=== PATIENT | male | born 1950 | race Caucasian/White ===

== ENCOUNTER → 2017-01-21 | Outpatient (CLI) | payer OTHER ==
[~2017-01-21] MED LIST: ACET-1138 PO; ATEN-171 PO; ATOR-24 PO; CARB1SOL OPB; CARI350T28 PO; CETI10TA84 PO; CLB200 PO; CLOB-65 EXT; CMD5 PO; CYAN500T13 PO; GLC/500 PO; LOVENOX SQ; LVNIS40 SQ; PREG1CAP70 PO; RXC5 PO; SNK PO; WARF7.5T4 PO
[2017-01-21 13:25] LABS: ALT/SGPT 34 U/L (12-78); AST/SGOT 22 U/L (15-37); BLOOD UREA NITROGEN 20 mg/dl (7-18); BUN/CREATININE RATIO 16.8 (10-20); CALCIUM 8.4 mg/dl (8.5-10.1); CARBON DIOXIDE 29 mmol/L (21-32); CHLORIDE 106 mmol/L (98-107); GLUCOSE 127 mg/dl (70-99); POTASSIUM 3.5 mmol/L (3.5-5.1); SODIUM 143 mmol/L (136-145)
[2017-01-21 13:28] LABS: ALB/GLOB RATIO 1.4 (0.9-2); ALKALINE PHOSPHATASE 107 U/L (45-117)
[2017-01-21 13:44] LABS: ESTIMATED AVERAGE GLUCOSE 143 mg/dl; HA1C FLAG Normal (Normal)
== END | disposition home or self-care (01) ==
LOC: C.LABMFLN 14:37
PROVIDERS: ATTEND Physician Assistant
DX: E11.9 Type 2 diabetes mellitus without complications (principal)

== ENCOUNTER → 2017-05-23 | Outpatient (CLI) | payer OTHER ==
[2017-05-23 14:27] LABS: ALT/SGPT 29 U/L (12-78); BLOOD UREA NITROGEN 22 mg/dl (7-18); BUN/CREATININE RATIO 15.6 (10-20); CARBON DIOXIDE 27 mmol/L (21-32); CHLORIDE 105 mmol/L (98-107); GLUCOSE 165 mg/dl (70-99); POTASSIUM 3.9 mmol/L (3.5-5.1); SODIUM 141 mmol/L (136-145)
[2017-05-23 14:28] LABS: BASO % 0.7 %; BASO ABS # 0.05 K/uL (0-0.2); COMPLETE YES; EOS % 8.1 %; HEMATOCRIT 47.9 % (42-52); IG% 0.3 %; LYMPH % 20.3 %; LYMPH ABS # 1.51 K/uL (1.2-3.4); MEAN CELL VOLUME 85.1 fL (80-100); MEAN CORPUSCULAR HEMOGLOBIN 28.6 pg (25-34); MEAN CORPUSCULAR HGB CONC 33.6 g/dl (32-36); MEAN PLATELET VOLUME 10.9 fL (7.4-10.4); MONO % 11.7 %; NEUT % 58.9 %; PLATELET COUNT 193 K/uL (130-400); RED BLOOD COUNT 5.63 M/uL (4.7-6.1); WHITE BLOOD COUNT 7.44 K/uL (4.8-10.8)
[2017-05-23 14:37] LABS: ALB/GLOB RATIO 1.3 (0.9-2); ALKALINE PHOSPHATASE 110 U/L (45-117); AST/SGOT 22 U/L (15-37); RHEUMATOID FACTOR < 10.0 U/mL (0-15); THYROID STIMULATING HORMONE 0.767 uIu/ml (0.300-4.500)
[2017-05-23 16:47] LABS: LYME DISEASE AB IGG NEG (NEG); LYME DISEASE AB IGM NEG (NEG)
== END | disposition home or self-care (01) ==
LOC: C.LABMFLN 10:15
PROVIDERS: ATTEND Physician Assistant
DX: M25.50 Pain in unspecified joint (principal); I82.409 Acute embolism and thrombosis of unspecified deep veins of unspecified lower extremity

== ENCOUNTER → 2017-06-06 | Outpatient (CLI) | payer OTHER ==
--- NOTE | 2017-06-06 11:16 | DIAGNOSTIC IMAGING REPORT ---
RIGHT WRIST MIN 3 VIEWS ROUTINE, RIGHT HAND MIN 3 VIEWS ROUTINE HISTORY: 67 years-old Male ARTHRALGIA OF MULTIPLE JOINTS Right symptoms are chronic. COMPARISON: None available TECHNIQUE: 3 views of the right hand and 3 views of the right wrist FINDINGS: Wrist: Mild radiocarpal degenerative changes are present. Moderate degenerative changes involve the first carpometacarpal joint. Mild triscaphe degenerative changes are noted. There is no acute fracture or dislocation. Peripheral arterial calcifications are present. Hand: Degenerative changes about the wrist are noted as above. Interphalangeal joint space narrowing is seen throughout the digits, most pronounced in the DIP joints of the third through fifth digits with there is at least moderate disease. Mild ulnar subluxation of the distal phalanx is noted, chronic in nature. No erosive arthropathy. Negative for opaque foreign body. IMPRESSION: 1. No acute fracture or dislocation of the right hand or wrist. 2. Degenerative changes about the hand and wrist, most pronounced in the first carpal metacarpal joint and DIP joints. 3. Peripheral vascular disease. The above report was generated using voice recognition software. It may contain grammatical, syntax or spelling errors. Electronically signed by: Tristan Brewer M.D. 06/06/2017 11:15 AM Dictated Date/Time: 06/06/2017 11:11 AM
--- NOTE | 2017-06-06 11:23 | DIAGNOSTIC IMAGING REPORT ---
LEFT HAND MIN 3 VIEWS ROUTINE CLINICAL HISTORY: ARTHRALGIA OF MULTIPLE JOINTS COMPARISON: None FINDINGS: No fracture or suspicious lesion is identified. There is marked joint space narrowing with extensive osteophytosis within the PIP joints of the third, fourth and fifth digits. There is severe osteoarthritis of the left first carpometacarpal joint. No erosions are identified. IMPRESSION: Severe osteoarthritis within multiple articulations of the left hand most pronounced within the DIP joints of the third, fourth and fifth digits and the left first carpometacarpal joint. The appearance within several distal interphalangeal joints raises the possibility of erosive osteoarthritis. Electronically signed by: Kris Spears M.D. 06/06/2017 11:21 AM Dictated Date/Time: 06/06/2017 11:19 AM
--- NOTE | 2017-06-06 11:24 | DIAGNOSTIC IMAGING REPORT ---
LEFT WRIST MIN 3 VIEWS ROUTINE CLINICAL HISTORY: ARTHRALGIA OF MULTIPLE JOINTS COMPARISON: None FINDINGS: There is marked joint space narrowing with osteophytosis of the left first carpometacarpal joint. No fracture or suspicious lesion is present. There is a lucent lesion within the scaphoid which is benign. There is moderate vascular calcification. There is no acute fracture. No erosions are identified. IMPRESSION: 1. Severe osteoarthrosis of the left first carpometacarpal joint. 2. No radiographic evidence of an inflammatory arthropathy. Electronically signed by: Kris Spears M.D. 06/06/2017 11:22 AM Dictated Date/Time: 06/06/2017 11:22 AM
--- NOTE | 2017-06-06 11:25 | DIAGNOSTIC IMAGING REPORT ---
RIGHT KNEE 3 VIEWS CLINICAL HISTORY: Right knee pain. Arthralgias of multiple joints. COMPARISON: None FINDINGS: There is moderate lateral patellar tilt. No fracture or suspicious lesion is present. There is marked narrowing of the lateral patellofemoral joint space. There is moderate medial component joint space narrowing. There is extensive osteophytosis of the right knee. No fracture or joint effusion is identified. IMPRESSION: 1. No acute fracture. 2. Moderate to severe osteoarthritis of the right knee, most pronounced within the medial and patellofemoral compartments. Electronically signed by: Kris Spears M.D. 06/06/2017 11:24 AM Dictated Date/Time: 06/06/2017 11:23 AM
[2017-06-06 12:50] LABS: TOTAL IRON BINDING CAPACITY 287 mcg/dl (250-450)
[2017-06-08 20:41] LABS: PARVOVIRUS IgG INDEX 0.4 (<0.9); PARVOVIRUS IgM INDEX 0.1 (<0.9)
== END | disposition home or self-care (01) ==
LOC: C.LAB1850 10:27
PROVIDERS: ATTEND Internal Medicine Rheumatology
DX: I73.9 Peripheral vascular disease, unspecified (principal); M17.11 Unilateral primary osteoarthritis, right knee; M19.042 Primary osteoarthritis, left hand; M19.032 Primary osteoarthritis, left wrist

== ENCOUNTER → 2017-07-29 | Outpatient (CLI) | payer OTHER ==
[2017-07-29 13:18] LABS: BASO % 0.6 %; BASO ABS # 0.05 K/uL (0-0.2); COMPLETE YES; EOS % 7.7 %; IG% 0.3 %; LYMPH % 21.6 %; LYMPH ABS # 1.69 K/uL (1.2-3.4); MEAN CELL VOLUME 86.6 fL (80-100); MEAN CORPUSCULAR HEMOGLOBIN 28.4 pg (25-34); MEAN CORPUSCULAR HGB CONC 32.8 g/dl (32-36); MEAN PLATELET VOLUME 10.8 fL (7.4-10.4); MONO % 9.6 %; NEUT % 60.2 %; PLATELET COUNT 200 K/uL (130-400); RED BLOOD COUNT 5.43 M/uL (4.7-6.1); WHITE BLOOD COUNT 7.82 K/uL (4.8-10.8)
[2017-07-29 13:42] LABS: ALT/SGPT 29 U/L (12-78)
[2017-07-29 13:45] LABS: ALKALINE PHOSPHATASE 92 U/L (45-117); AST/SGOT 22 U/L (15-37)
== END | disposition home or self-care (01) ==
LOC: C.LABMFLN 09:21
PROVIDERS: ATTEND Internal Medicine Rheumatology
DX: Z51.81 Encounter for therapeutic drug level monitoring (principal); Z79.899 Other long term (current) drug therapy

== ENCOUNTER → 2017-10-04 | Outpatient (CLI) | payer OTHER ==
[2017-10-04 12:44] LABS: BASO % 0.7 %; BASO ABS # 0.07 K/uL (0-0.2); COMPLETE YES; EOS % 6.5 %; HEMATOCRIT 36.6 % (42-52); IG% 0.1 %; LYMPH % 17.3 %; LYMPH ABS # 1.65 K/uL (1.2-3.4); MEAN CELL VOLUME 80.3 fL (80-100); MEAN CORPUSCULAR HEMOGLOBIN 24.6 pg (25-34); MEAN CORPUSCULAR HGB CONC 30.6 g/dl (32-36); MEAN PLATELET VOLUME 10.1 fL (7.4-10.4); MONO % 10.6 %; NEUT % 64.8 %; PLATELET COUNT 225 K/uL (130-400); RED BLOOD COUNT 4.56 M/uL (4.7-6.1); WHITE BLOOD COUNT 9.55 K/uL (4.8-10.8)
== END | disposition home or self-care (01) ==
LOC: C.LABMFLN 10:45
PROVIDERS: ATTEND Urology
DX: K92.2 Gastrointestinal hemorrhage, unspecified (principal); D64.9 Anemia, unspecified; Z12.5 Encounter for screening for malignant neoplasm of prostate

== ENCOUNTER → 2017-10-16 | Outpatient (CLI) | payer OTHER | END | disposition home or self-care (01) | LOC: C.LABMFLN 10:15 | PROVIDERS: ATTEND Internal Medicine Hematology & Oncology | DX: I82.403 Acute embolism and thrombosis of unspecified deep veins of lower extremity, bilateral (principal) ==

== ENCOUNTER → 2017-11-26 | Outpatient (CLI) | payer OTHER ==
[2017-11-26 17:58] LABS: BASO % 0.8 %; BASO ABS # 0.08 K/uL (0-0.2); EOS % 7.2 %; EOS ABS # 0.69 K/uL (0-0.5); HEMATOCRIT 38.3 % (42-52); HEMOGLOBIN 11.7 g/dL (14.0-18.0); IG# 0.01 K/uL (0.00-0.02); LYMPH ABS # 1.74 K/uL (1.2-3.4); MEAN CELL VOLUME 74.1 fL (80-100); MEAN CORPUSCULAR HEMOGLOBIN 22.6 pg (25-34); MEAN CORPUSCULAR HGB CONC 30.5 g/dl (32-36); MEAN PLATELET VOLUME 10.4 fL (7.4-10.4); MONO % 10.1 %; MONO ABS # 0.97 K/uL (0.11-0.59); NEUT % 63.8 %; NEUT ABS # 6.15 K/uL (1.4-6.5); PLATELET COUNT 267 K/uL (130-400); RED CELL DISTRIBUTION WIDTH CV 15.6 % (11.5-14.5); RED CELL DISTRIBUTION WIDTH SD 42.3 fL (36.4-46.3); WHITE BLOOD COUNT 9.64 K/uL (4.8-10.8)
[2017-11-26 18:26] LABS: CREATININE RANDOM URINE 58.8 mg/dl
[2017-11-26 18:29] LABS: ALBUMIN 3.9 gm/dl (3.4-5.0); AST/SGOT 23 U/L (15-37); BLOOD UREA NITROGEN 26 mg/dl (7-18); CALCIUM 8.5 mg/dl (8.5-10.1); CARBON DIOXIDE 28 mmol/L (21-32); CREATININE 1.73 mg/dl (0.60-1.40); GLUCOSE 241 mg/dl (70-99); POTASSIUM 4.2 mmol/L (3.5-5.1); SODIUM 137 mmol/L (136-145)
[2017-11-26 18:40] LABS: ALKALINE PHOSPHATASE 113 U/L (45-117); ALT/SGPT 30 U/L (12-78); CHOLESTEROL 114 mg/dl (0-200); LDL CHOLESTEROL CALCULATED 26 mg/dl; TOTAL PROTEIN 7.1 gm/dl (6.4-8.2)
[2017-11-27 05:50] LABS: HEMOGLOBIN A1C 8.8 % (4.5-5.6)
== END | disposition home or self-care (01) ==
LOC: C.LABMFLN 14:16
PROVIDERS: ATTEND Physician Assistant
DX: E11.9 Type 2 diabetes mellitus without complications (principal); E78.5 Hyperlipidemia, unspecified; D64.9 Anemia, unspecified; I10 Essential (primary) hypertension

== ENCOUNTER 2018-02-19 07:54 | Inpatient (IN) | payer OTHER ==
[2018-01-21 14:16] VITALS: BMI 39.0
--- NOTE | 2018-01-21 14:48 | PAT Medication Instructions ---
Service Date Jan 21, 2018. Current Home Medication List Acetaminophen (Tylenol), 1,000 MG PO PRN Aspirin (Aspirin Ec), 81 MG PO QPM Atenolol/Chlorthalidone (Tenoretic 50 Mg/25 Mg), 1 TAB PO HS Atorvastatin (Lipitor), 40 MG PO HS Carboxymethylcellulose Sodium (Refresh), 1 DROP OPB PRN Carisoprodol (Soma), 350 MG PO BID PRN for Pain Cetirizine (Zyrtec), 10 MG PO HS Clobetasol Propionate (Clobetasol Propionate Cream 0.05%), 1 APPLN EXT BID PRN for RN Cyanocobalamin (Vitamin B12 500MCG), 500 MCG PO QPM Hydrocodone/Acetaminophen 5MG/325MG ([place] 5MG/325MG), 1 TABLET PO Q6H PRN for N Metformin Hcl (Glucophage), 1,000 MG PO BID Pregabalin (Lyrica), 150 MG PO QAM Pregabalin (Lyrica), 25 MG PO HS Medication Instructions For Your Scheduled Surgery - Hold the following medications 24 hours prior to surgery: Clobetasol Propionate (Clobetasol Propionate Cream 0.05%), 1 APPLN EXT BID PRN for RN - Hold the following medications the morning of surgery: Metformin Hcl (Glucophage), 1,000 MG PO BID Carisoprodol (Soma), 350 MG PO BID PRN for Pain - Take the following medications the morning of surgery with a sip of water: Acetaminophen (Tylenol), 1,000 MG PO PRN (okay to take up to 4 hours prior to surgery if needed) Hydrocodone/Acetaminophen 5MG/325MG ([place] 5MG/325MG), 1 TABLET PO Q6H PRN for N (okay to take up to 4 hours prior to surgery if needed) Pregabalin (Lyrica), 150 MG PO QAM Carboxymethylcellulose Sodium (Refresh), 1 DROP OPB PRN (if needed) - Take the following medications as scheduled the night before surgery: Pregabalin (Lyrica), 25 MG PO HS Metformin Hcl (Glucophage), 1,000 MG PO BID Hydrocodone/Acetaminophen 5MG/325MG ([place] 5MG/325MG), 1 TABLET PO Q6H PRN for N (if needed) Cyanocobalamin (Vitamin B12 500MCG), 500 MCG PO QPM Cetirizine (Zyrtec), 10 MG PO HS Carboxymethylcellulose Sodium (Refresh), 1 DROP OPB PRN (if needed) Atorvastatin (Lipitor), 40 MG PO HS Atenolol/Chlorthalidone (Tenoretic 50 Mg/25 Mg), 1 TAB PO HS Aspirin (Aspirin Ec), 81 MG PO QPM Acetaminophen (Tylenol), 1,000 MG PO PRN (if needed) Carisoprodol (Soma), 350 MG PO BID PRN for Pain (if needed) If you have any questions please call us at [phone] or [phone] or [phone]
[2018-01-21 15:52] LABS: BASO % 0.5 %; BASO ABS # 0.05 K/uL (0-0.2); EOS % 6.3 %; EOS ABS # 0.58 K/uL (0-0.5); HEMOGLOBIN 12.1 g/dL (14.0-18.0); IG# 0.01 K/uL (0.00-0.02); LYMPH % 17.2 %; LYMPH ABS # 1.59 K/uL (1.2-3.4); MEAN CELL VOLUME 73.6 fL (80-100); MEAN CORPUSCULAR HEMOGLOBIN 22.8 pg (25-34); MEAN PLATELET VOLUME 10.3 fL (7.4-10.4); MONO ABS # 0.92 K/uL (0.11-0.59); NEUT % 65.9 %; NEUT ABS # 6.09 K/uL (1.4-6.5); PLATELET COUNT 234 K/uL (130-400); RED CELL DISTRIBUTION WIDTH CV 19.1 % (11.5-14.5); RED CELL DISTRIBUTION WIDTH SD 51.4 fL (36.4-46.3); WHITE BLOOD COUNT 9.24 K/uL (4.8-10.8)
[2018-01-21 15:59] LABS: CALCIUM 9.1 mg/dl (8.5-10.1); CREATININE 1.16 mg/dl (0.60-1.40); POTASSIUM 4.4 mmol/L (3.5-5.1)
[2018-01-21 16:03] LABS: INR 1.1 (0.9-1.1); PTT PATIENT 28.5 SECONDS (21.0-31.0)
[2018-01-22 06:47] LABS: HEMOGLOBIN A1C 6.5 % (4.5-5.6)
--- NOTE | 2018-02-18 16:36 | HISTORY & PHYSICAL EXAMINATION ---
DATE OF ADMISSION: 02/19/2018 CHIEF COMPLAINT: Chronic right knee pain. HISTORY OF PRESENT ILLNESS: This is a 67-year-old male patient of Dr. Owen'goldie complaining of chronic right knee pain, longstanding, now progressively getting worse. The patient has failed conservative treatment including anti-inflammatories, intra-articular injections, and the use of the cane. The patient has been diagnosed with end-stage osteoarthritis per clinical and radiographic exams. The patient has increased pain with weightbearing activities and his pain does interfere with his activities of daily living. PAST MEDICAL HISTORY: Hypertension, hypercholesterolemia, snoring, no evidence of sleep apnea, diabetes mellitus, history of blood clots, osteoarthritis, spine problems, sciatica, obesity, BPH. SOCIAL HISTORY: Did smoke 3 packs per day for 10 years, quit in 1991. No alcohol. PAST SURGICAL HISTORY: Bilateral hips, bilateral shoulders, spine, bilateral hands, left knee. REVIEW OF SYSTEMS: The patient complains of chronic right knee pain and instability. Otherwise denies any shortness of breath, chest pain, nausea, vomiting or other joint complaints. FAMILY HISTORY: Noncontributory. MEDICATIONS: 1. Atenolol/chlorthalidone 50/25 one daily. 2. Carisoprodol 350 mg daily. 3. Aspirin 81 mg daily. 4. Clobetasol 0.05% ointment 2 times to affected area topically. 5. Atorvastatin 40 mg daily. 6. Cetirizine 10 mg daily. 7. [place] as needed. 8. Vitamin B12 500 mcg daily. 9. Levaquin as directed. 10. Lyrica 225 mg daily in the evening. 11. Metformin 500 mg 2 tablets b.i.d. ALLERGIES: INCLUDE ADHESIVES. PHYSICAL EXAMINATION: GENERAL: Well-developed, well-nourished 67-year-old male, in no acute distress. He is alert and oriented x3 and pleasant. HEENT: Normocephalic, atraumatic. Extraocular motions are intact. Pupils are equal and reactive to light. HEART: Regular rate and rhythm. No murmurs appreciated. LUNGS: Clear. ABDOMEN: Soft and nontender. Bowel sounds are present. EXTREMITIES: Right knee reveals a varus deformity. He has negative 10-115 degrees of range of motion. He has medial joint line tenderness with a mild effusion. He has crepitation with passive range of motion. He has 4/5 strength and neurologically and neurovascularly he is intact in his right lower extremity. DIAGNOSES: Right knee end-stage osteoarthritis, hypertension, hypercholesterolemia, snoring with no diagnoses of sleep apnea, diabetes mellitus, history of blood clots, osteoarthritis, spine problems, sciatica, obesity, and benign prostatic hypertrophy. PLAN: The patient was advised of the diagnosis. Indications, risks, benefits, postop course have all been reviewed. The patient wished to proceed with a right total knee arthroplasty. Necessary consent forms, preoperative testing, and clearances will be obtained.
[~2018-02-19] VITALS: Ht 170.2 cm; Wt 113.2 kg
[2018-02-19] VITALS (13 sets, daily range): BP systolic 104–158; BP diastolic 60–96; PULSE 50–61; TEMP 36.2–37.4; O2SAT 88–100; Ht 170.2 cm; Wt 113.2 kg
[~2018-02-19 07:54] MED LIST changes: -ACET-1138 PO; +ACET-1256 PO; +ACETAMINOPHEN 500 MG TAB PO SCH; +ASPI81TA28 PO; +BUPIVACAINE 0.25% 30 ML VIAL ONE; +BUPIVACAINE 0.5 % 5 MG/1 ML PF 10ML VIAL ONE; +CEFAZOLIN 2000MG IV PUSH 15 ML IV SCH; -CLB200 PO; +CLBCRM30 EXT; -CLOB-65 EXT; -CMD5 PO; +FAMOTIDINE 20 MG TAB PO SCH; +FENTANYL CITRATE INJ 50 MCG/1 ML 2 ML VIAL ONE; +GABAPENTIN 300 MG CAP PO SCH; +HYDR-5688 PO; +LACTATED RINGER'S 1000ML 1,000 ML IV SCH; -LOVENOX SQ; -LVNIS40 SQ; +METOCLOPRAMIDE HCL 10 MG TAB PO SCH; +MIDAZOLAM HCL 1 MG/ML 2ML VIAL ONE; +PREG1CAP36 PO; +ROPIVACAINE 5MG/ML 30 ML 150 MG, BUPIVACAINE 0.5% MPF INJ 30 ML, EpINEphrine HCL INJ 0.... INFIL SCH; -RXC5 PO; -SNK PO; -WARF7.5T4 PO
[2018-02-19] MEDS ORDERED: BACITRACIN 50000 UNIT VIAL ONE (08:30)
[2018-02-19] MEDS ORDERED: POVIDONE-IODINE OP SOLN 30 ML BTL ONE (08:30)
[2018-02-19] MEDS ORDERED: ORTHO JOINT ANESTHETIC ONE (08:30)
[2018-02-19] MEDS ORDERED: PRT/20 PO (09:06)
--- NOTE | 2018-02-19 10:16 | History & Physical Bridge Note ---
H&P Re-Evaluation Bridge Note: I have examined the patient, reviewed the History & Physical and in the interval since the performance of the History & Physical I have noted the following changes of clinical significance: No changes noted
[2018-02-19] MEDS ORDERED: MIDAZOLAM HCL 1 MG/ML 2ML VIAL ONE (11:41)
[2018-02-19] MEDS ORDERED: PROPOFOL IV EMULSION 10 MG/ML 20 ML VIAL IV ONE ×2 (11:51)
--- NOTE | 2018-02-19 12:24 | [facility] Post Operative Brief Note ---
Immediate Operative Summary Operative Date Feb 19, 2018. Pre-Operative Diagnosis Right knee end-stage osteoarthritis Post-Operative Diagnosis Right knee end-stage osteoarthritis. Procedure(s) Performed Right Total Knee Arthroplastylateral release ITB release Surgeon Dr. Erasto Owen Dye Can Operator Surgeon(s) Edmundo Baeza Estimated Blood Loss 5ml Findings Consistent with Post-Op Diagnosis Specimens A. Right knee bone and tissue Drains 2 hemovac Anesthesia Type MAC Spinal Regional Complication(s) none
[2018-02-19] MEDS ORDERED: HYDROmorphone INJ 0.5 MG/0.5 ML SYR IV PRN (12:30)
[2018-02-19] MEDS ORDERED: ATROPINE SULFATE 0.1 MG/ML 5ML SYR IV PRN (12:30)
[2018-02-19] MEDS ORDERED: ONDANSETRON INJ 2 MG/ML 2 ML VIAL IV PRN ×2 (12:30→13:00)
[2018-02-19] MEDS ORDERED: PHENYLEPHRINE 100MCG/ML 5ML SYR IV PRN (12:30)
[2018-02-19] MEDS ORDERED: KETOROLAC TROMETHAMINE 15 MG/ML VIAL IV. PRN (12:30)
[2018-02-19] MEDS ORDERED: EpHEDrine SULFATE INJ 50 MG/ML AMP IV PRN (12:30)
[2018-02-19] MEDS ORDERED: MoRPHine SULFATE 2 MG/ML CARP IV PRN (13:00)
[2018-02-19] MEDS ORDERED: ALUMINUM/MAGNESIUM/SIMETH (MAALOX MAX) 30 ML UDC PO PRN (13:00)
[2018-02-19] MEDS ORDERED: MAGNESIUM HYDROXIDE SUSP 30 ML UDC PO PRN (13:00)
[2018-02-19] MEDS ORDERED: BISACODYL 10 MG SUPP PR PRN (13:00)
--- NOTE | 2018-02-19 13:59 | DIAGNOSTIC IMAGING REPORT ---
R KNEE 1 OR 2 VIEWS ROUTINE CLINICAL HISTORY: AP/LATERAL IN PACU RIGHT KNEE postoperative evaluation COMPARISON: None. DISCUSSION: Total right knee arthroplasty in good position. Good contact between prosthetic and underlying bone. Surgical drains are in position. Expected soft tissue postoperative change IMPRESSION: Anatomic alignment posttotal right knee arthroplasty. The above report was generated using voice recognition software. It may contain grammatical, syntax or spelling errors. Electronically signed by: Brent Duncan M.D. 02/19/2018 1:57 PM Dictated Date/Time: 02/19/2018 1:57 PM
[2018-02-19] MEDS ORDERED: TAMSULOSIN HCL 0.4 MG CAP PO PRN (14:30)
[2018-02-19] MEDS ORDERED: PHARMACY GLYCEMIC MGMT CONSULT PRN (14:31)
--- NOTE | 2018-02-19 14:58 | Pharmacy Progress Note ---
Glycemic Control Intl Consult Date of Service Feb 19, 2018. Scope Glycemic Pharmacist consulted by Dr Saba on 02/19/18 for glycemic control and to write orders per [facility] inpatient glycemic control protocol Objective Weight (Kilograms): 113.20 Accuchecks BSG (last 24hrs): Test 02/19/18 08:19 02/19/18 13:03 02/19/18 14:13 Bedside Glucose 113 mg/dl (70-99) 103 mg/dl (70-99) 92 mg/dl (70-99) Recent Pertinent Medications Outpatient Anti-diabetic Regimen: * Metformin 1g BID * A1c = 6.5 % 01/21/18 Risk Factors for Insulin Resistance: * Steroids: none per MAR * IVF:NSS @100/hr * Recent Surgery: POD #0 * Diet: T2DM Assessment & Plan ASSESSMENT: * Mr. Servin is a 67yo M s/p R TKA. His A1C, 6.5%, indicative of good glycemic control. Due to perioperative/postoperative steroids not being ordered will dose prandial insulin bt wt of stress 2&3. PLAN FOR INPATIENT GLYCEMIC CONTROL: * Holding outpatient oral diabetes medications, consider starting Metformin 02/20 once we can confirm he is tolerating a diet. * Basal insulin: Will add lantus scale for tonight only in the event that Mr. Servin requires coverage. BSG<200 hold lantus, BSG>/= give 10units * Correctional Insulin with NOVOLOG / REGULAR per scale ACHS or Q6hrs while NPO * Goal Range: Low 110 mg/dL - High 140 mg/dL * Correction Factor: 30 mg/dL/unit * Nutritional / Prandial insulin per carb ratio of 1 unit per 10 grams CHO consumed * Please note that the plan above was derived based on current level of insulin resistance and hospital stress. These recommendations are appropriate for inpatient admission only. Plan of care upon discharge will need to be reassessed to avoid potential outpatient hypo/hyperglycemia. Thank you.
--- NOTE | 2018-02-19 15:02 | Anesthesiology Progress Note ---
Anesthesia Post Op Note Date & Time Feb 19, 2018 at 15:02 Vital Signs Pain Intensity: 0.0 Vital Signs Past 12 Hours Date Time Temp Pulse Resp B/P (MAP) Pulse Ox O2 Delivery O2 Flow Rate FiO2 02/19/18 14:18 36.6 02/19/18 14:17 36.2 50 18 149/85 (106) 100 Nasal Cannula 2.0 02/19/18 13:55 Nasal Cannula 2.0 02/19/18 13:50 36.2 51 18 146/77 (100) 97 Nasal Cannula 2.0 02/19/18 13:30 36.2 50 15 130/76 98 Nasal Cannula 2 02/19/18 13:20 57 15 133/74 98 Nasal Cannula 2 02/19/18 13:10 55 20 119/79 100 Nasal Cannula 2 02/19/18 13:00 56 14 120/73 96 Nasal Cannula 2 02/19/18 12:54 36.0 58 13 116/64 97 Nasal Cannula 2 02/19/18 08:32 36.8 50 20 145/91 95 Room Air Notes Mental Status: alert / awake / arousable, participated in evaluation Pt Amnestic to Procedure: Yes Nausea / Vomiting: adequately controlled Pain: adequately controlled Airway Patency, RR, SpO2: stable & adequate BP & HR: stable & adequate Hydration State: stable & adequate Anesthetic Complications: no major complications apparent
--- NOTE | 2018-02-19 15:07 | Medical Consult ---
Consultation Date of Consultation: Feb 19, 2018. Attending Physician: Ersato Owen M.D. Reason for Consultation: Medical management History of Present Illness This is a 67 yo M with PMHx of HTN, HLD, DM II, hx of blood clots, osteoarthritis, sciatica, obesity with BMI 39.1, BPH, and remote hx of smoking 3 ppd x 10 years, quit in 1991 who presents for elective R total knee arthroplasty by Dr. Owen on 02/19/18. Pt reports doing well, he has no acute complaints or pain. He has been tolerating a diet and passing gas. Pt has not yet been up to ambulate but plans to work with PT/OT later today or tomorrow morning. Past Medical/Surgical History Medical Problems: (1) DM II (diabetes mellitus, type II), controlled (2) History of tobacco use (3) HLD (hyperlipidemia) (4) HTN (hypertension) (5) Obesity (BMI 30-39.9) (6) Right knee DJD (7) Sciatica Surgical Problems: (1) History of bilateral total hip arthroplasty (2) Hx of repair of left rotator cuff (3) Hx of repair of right rotator cuff (4) Post-operative state Social History Smoking Status: Former Smoker Smokeless Tobacco Use: No Marital Status: Housing Status: lives with family Occupation Status: retired Allergies Coded Allergies: Adhesives (Verified Allergy, Unknown, REDNESS RASH/SKIN TEARING WITH BANDAIDS, 02/19/18) NO KNOWN DRUG ALLERGIES (Verified Allergy, Unknown, NONE, 02/19/18) Current Inpatient Medications Current Inpatient Medications Medications (Trade) Dose Ordered Sig/Mona Route Start Time Stop Time Status Last Admin Dose Admin Lactated Ringer's 1,000 ml @ 15 mls/hr Q24H IV 02/19/18 06:00 02/20/18 05:59 02/19/18 09:00 15 MLS/HR Cefazolin Sodium 15 ml @ 3.75 mls/ min PREOP IV 02/19/18 06:00 02/19/18 18:00 02/19/18 10:40 3.75 MLS/MIN Acetaminophen (Tylenol Tab) 1,000 mg PREOP PO 02/19/18 06:00 02/19/18 18:00 02/19/18 08:59 1,000 MG Famotidine (Pepcid Tab) 20 mg PREOP PO 02/19/18 06:00 02/19/18 18:00 02/19/18 08:59 20 MG Gabapentin (Neurontin Cap) 300 mg PREOP PO 02/19/18 06:00 02/19/18 18:00 02/19/18 09:00 300 MG Metoclopramide HCl (Reglan Tab) 10 mg PREOP PO 02/19/18 06:00 02/19/18 18:00 02/19/18 08:59 10 MG Ropivacaine 150 mg/Bupivacaine HCl 30 ml/ Epinephrine HCl 0.15 mg/Ketorolac Tromethamine 30 mg/Ketamine HCl 10 mg/Clonidine 100 mcg/Sodium Chloride 92.35 ml @ 0 mls/hr TODAY@06 INFIL 02/19/18 06:00 02/19/18 15:00 Ondansetron HCl (Zofran Inj) 4 mg ONE PRN IV 02/19/18 12:30 02/19/18 17:30 Atropine Sulfate (Atropine Sulfate 0.1mg/ml Inj) 0.5 mg Q1M PRN IV 02/19/18 12:30 02/19/18 17:30 Ephedrine Sulfate (EpHEDrine SULFATE INJ) 5 mg Q5M PRN IV 02/19/18 12:30 02/19/18 17:30 Ketorolac Tromethamine (Toradol Inj) 15 mg ONE PRN IV. 02/19/18 12:30 02/19/18 17:30 Hydromorphone HCl (Dilaudid Inj) 0.25 mg Q5M PRN IV 02/19/18 12:30 02/19/18 17:30 Phenylephrine HCl ([place]-Synephrine 500MCG/5ML Syr) 100 mcg Q5M PRN IV 02/19/18 12:30 02/19/18 17:30 Atorvastatin Calcium (Lipitor Tab) 40 mg HS PO 02/19/18 21:00 03/21/18 20:59 Cetirizine HCl (zyrTEC TAB) 10 mg HS PO 02/19/18 21:00 03/21/18 20:59 Cyanocobalamin (Vitamin B-12 Tab) 500 mcg QPM PO 02/19/18 21:00 03/21/18 20:59 Pregabalin (Lyrica Cap) 25 mg HS PO 4/25/18 21:00 03/21/18 20:59 Pregabalin (Lyrica Cap) 150 mg QAM PO 02/20/18 09:00 03/22/18 08:59 Atenolol (Tenormin Tab) 50 mg HS PO 02/19/18 21:00 03/21/18 20:59 Miscellaneous Information (Order Awaiting Action) 1 ea QS N/A 02/19/18 16:00 03/21/18 15:59 Morphine Sulfate (MoRPHine SULFATE INJ) 2 mg Q4HWA PRN IV 02/19/18 13:00 03/05/18 12:59 Insulin Aspart (novoLOG ASPART) SLIDING SCALE G... ACHS SC 02/19/18 17:15 03/21/18 17:14 Miscellaneous Information (Consult Glycemic Management Pharmacy) 1 ea UD PRN N/A 02/19/18 14:31 03/21/18 14:30 Sodium Chloride 1,000 ml @ 100 mls/hr Q10H IV 02/19/18 14:15 02/20/18 14:14 Cefazolin Sodium 2000 mg/Syringe 15 ml @ 3.75 mls/ min Q8H IV 02/19/18 19:00 02/20/18 03:03 Oxycodone HCl (Roxicodone Immediate Rel Tab) 1 TABLET FOR PAIN RATING... Q4H PRN PO 02/19/18 13:00 03/05/18 12:59 Acetaminophen (Tylenol Tab) 1,000 mg Q8 PO 02/19/18 22:00 03/21/18 21:59 Magnesium Hydroxide (Milk Of Magnesia Susp) 30 ml Q6H PRN PO 02/19/18 13:00 03/21/18 12:59 Bisacodyl (Dulcolax Supp) 10 mg DAILY PRN WI 02/19/18 13:00 03/21/18 12:59 Senna (Senokot Tab) 17.2 mg HS PO 02/19/18 21:00 03/21/18 20:59 Docusate Sodium (coLACE CAP) 100 mg BID PO 02/19/18 21:00 03/21/18 20:59 Al Hydrox/Mg Hydrox/Simethicone (Maalox Max Susp) 15 ml Q4H PRN PO 02/19/18 13:00 03/21/18 12:59 Multivitamins (Multivitamin Tab) 1 tab QAM PO 02/20/18 09:00 03/22/18 08:59 Ondansetron HCl (Zofran Inj) 4 mg Q6H PRN IV 02/19/18 13:00 03/21/18 12:59 Ferrous Gluconate (Ferrous Gluconate Tab) 324 mg TIDM PO 02/19/18 17:45 03/21/18 17:59 Pantoprazole Sodium (Protonix Tab) 40 mg QAM PO 02/20/18 09:00 02/23/18 08:59 Tamsulosin HCl (Flomax Cap) 0.4 mg QAM PRN PO 02/19/18 14:30 03/21/18 14:29 Tramadol HCl (Ultram Tab) 1 tablet for pain rating... Q4H PRN PO 02/19/18 13:00 03/21/18 12:59 Aspirin (Ecotrin Tab) 81 mg BID PO 02/19/18 21:00 03/21/18 20:59 Chlorthalidone (Hygroton Tab) 25 mg HS PO 02/19/18 21:00 03/21/18 20:59 Review of Systems Constitutional: No fever, sweats or chills Eyes: No diplopia, no worsening or blurred vision ENT: normal hearing, no trouble swallowing Respiratory: No cough, sputum, dyspnea at rest or on exertion Cardiovascular: No chest pain, tightness or palpitations Abdomen: No pain, nausea, vomiting, diarrhea or constipation Musculoskeletal: No joint pain, calf pain, swelling Neurologic: No weakness, numbness/tingling, or balance problems Psychiatric: No anxiety or depression Skin: No rash or itch Physical Exam Date Time Temp Pulse Resp B/P (MAP) Pulse Ox O2 Delivery O2 Flow Rate FiO2 02/19/18 14:18 36.6 02/19/18 14:17 36.2 50 18 149/85 (106) 100 Nasal Cannula 2.0 02/19/18 13:55 Nasal Cannula 2.0 02/19/18 13:50 36.2 51 18 146/77 (100) 97 Nasal Cannula 2.0 02/19/18 13:30 36.2 50 15 130/76 98 Nasal Cannula 2 02/19/18 13:20 57 15 133/74 98 Nasal Cannula 2 02/19/18 13:10 55 20 119/79 100 Nasal Cannula 2 02/19/18 13:00 56 14 120/73 96 Nasal Cannula 2 02/19/18 12:54 36.0 58 13 116/64 97 Nasal Cannula 2 02/19/18 08:32 36.8 50 20 145/91 95 Room Air General: awake, alert, no apparent distress, obese Head: Normocephalic, atraumatic ENT: PERRL, EOMI, no pharyngeal exudate, mucous membranes moist Chest: Slightly diminished breath sounds at bases bilaterally, on 2L via NC, no adventitious breath sounds Cardiac: Regular rate and rhythm, no murmur, no JVD, normal peripheral pulses, good capillary refill Abdominal: NABS x 4 quadrants, soft, nontender to palpation, no rebound, guarding or tenderness Extremities: Right knee wrapped in [place], Hemovac drain in place, ice pack, otherwise normal inspection, no peripheral edema or erythema, calfs nontender to palpation Psych: Normal mood and affect Neuro: AAO x 3, no motor deficits, speech is clear, no peripheral sensory deficits Laboratory Results Last 24 Hours Test 02/19/18 08:19 02/19/18 13:03 02/19/18 14:13 Bedside Glucose 113 mg/dl 103 mg/dl 92 mg/dl Assessment & Plan This is a 67 yo M with PMHx of HTN, HLD, DM II, hx of blood clots, osteoarthritis, sciatica, obesity with BMI 39.1, BPH, and remote hx of smoking 3 ppd x 10 years, quit in 1991 who presents for elective R total knee arthroplasty by Dr. Owen on 02/19/18. S/p R TKA - Pain management, bowel regimen, DVT ppx with asa 81 mg BID per primary team - PT/OT - plan for home health as he has had this in the past with other surgeries. HTN - atenolol 50 mg QAM HLD - cont statin therapy DM II - ISS with accuchecks achs, last Hgb A1C= 6.5 on 01/21 - Glucose stable, holding metformin 1000 mg BID while inpatient - resume upon discharge. BPH - Cont flomax DVT ppx: per primary team as above CODE: Full Disposition: From home, discharge per primary team Thank you for involving us in the consultation of Mr. Servin, please do not hesitate to call with questions or concerns. At this time medicine will sign off. I personally interviewed and examined the patient. I agree with history of present illness and physical exam mentioned above, I also performed my own history taking and examination. Past medical history and review of system has been obtained by myself I reviewed all pertinent labs and studies Reviewed current medications I discussed and formulated of the assessment and plan mentioned above. Please refer to the Summary mentioned below. 67-year-old man with past medical history of hypertension, dyslipidemia, diabetes mellitus type 2, blood clots, osteoarthritis, morbid obesity presented to the hospital for an elective right total knee arthroplasty, procedure went uneventful, patient has no complaints Medically stable, please call us tomorrow if labs appears to be abnormal or if you have any question, otherwise will sign off the patient and will only see him as needed General Appearance: not in acute distress Eyes: normal Sclerae, extraocular muscle intact ENT: hearing grossly normal Neck: supple Respiratory/Chest: normal air entry bilateral ,no respiratory distress, no accessory muscle use Cardiovascular: regular rate, rhythm, no murmur Abdomen: non tender, soft, no masses Extremities: no edema musculoskeletal: no significant swelling or inflammation in any joint Neurologic/Psychiatric: Awake alert oriented times place and person moves all extremities sensation intact cranial nerves II-12 appear to be intact Skin: normal color, warm/dry, no rash Crow Platt [facility]
--- NOTE | 2018-02-19 16:27 | [facility] Operative Report ---
Operative Report Operative Date Feb 19, 2018. Pre-Operative Diagnosis Right knee end-stage osteoarthritis Post-Operative Diagnosis Same Procedure(s) Performed Right total knee arthroplasty with lateral release IT band release Surgeon Dr. Erasto Owen Computer Installer Surgeon(s) Edmundo Beaza Estimated Blood Loss 5ml Findings Marked flexion contracture advanced osteoarthritis grade 4 patellofemoral and medial compartment with scar tissue. Specimens A. Right knee bone and tissue Drains 2 hemovac Anesthesia Spinal sedation orthomix Complication(s) None Disposition Recovery Room / PACU Indications 59-year-old male with chronic bilateral knee pain more severe pain on the right than the left. Radiographically he has end-stage arthritis both knees the left is more severe radiographic findings but not as painful. Radiographs demonstrate a lateral lying patella narrowed patellofemoral joint [id number] medial compartment and flexion views with varus knee Description of Procedure The patient was taken to the operating room and anesthetized under spinal sedation. Patient was placed supine on the the operating table. A pneumatic tourniquet was placed about the right upper thigh. The knee exam demonstrated a 20 flexion contracture further passive flexion to 100 some patella baja no instability. The involved leg was elevated exsanguinated with Esmarch bandage and the pneumatic tourniquet was raised to 325 millimeters mercury. A longitudinal incision was made across the anterior knee. Skin flaps were elevated. An incision was made into the medial retinaculum and extended up into the mid third of the quadriceps tendon and extended down to the tibial tubercle. Intra-articular findings demonstrated tricompartmental DJD mainly the patellofemoral joint medial compartment grade 4 DJD patellofemoral joint and medial compartment with scarred infrapatellar fat pad and tricompartmental osteophytes.. The knee was exposed by excising cruciate ligaments and menisci. The infrapatellar fat pad was resected. The fat pad over the anterior femur at the upper aspect of the articular surface was resected for placement of the component in that area. A subperiosteal peel lateral release was performed around the patella The Ann [employer] Nephew PermissionTVney 2.0 total knee arthroplasty system was utilized for the procedure. The standard cutting guides were used for the procedure. An intramedullary drill hole was made to the femur and the gloria was advanced into the intramedullary canal and the distal femoral cutting guide was pinned in position. We move the cutting guide +2 proximal due to flexion contracture. The distal femoral cut was made. The femur sizing guide was positioned and the drill holes are made in 3 of external rotation to match the epicondylar axis. The femur sized for a 5 implant. The size 5, 5 in 1 cutting block was placed. The anterior posterior and chamfer cuts were made. The knee was extended and a free hand cut technique was performed to the patella. The patella with was measured and the width was reproduced using a patella component. 3 drill holes are made for the patella component pegs. The tibia was then subluxed. The external tibial cutting guide was aligned with the long axis of the tibia to create a perpendicular cut to the long axis of the tibia placing in some posterior slope. the proximal tibial cut was made with the oscillating saw. The size 5 tibial trial was externally rotated in line with the tibial tubercle and pinned in position. The punch for the stem was used. The femoral trial was inserted and centered the notch cutting devices were used and the collet was placed. Tibial trials were used for the insert. The size 10 high flex posterior stabilized trial gave balanced ligaments through full range of motion. To obtain balanced flexion-extension gaps had to do posterior medial and medial release of the medial capsule off the tibia. Patella tracking was assessed with range of motion. The patella tracked slightly laterally. The IT band was extremely tight as well as lateral retinaculum which was released and some of the IT band was also released to allow the patella tracked centrally with passive range of motion. The trials were removed. The Orthomix anesthetic cocktail was injected per protocol. The cut bone surfaces and soft tissue were copiously irrigated with antibiotic solution with bacitracin. The final components were cemented with Simplex cement. The final components were 5 posterior stabilized Oxinium Ann & Nephew journey 2.0 posterior stabilized femoral component, 5 primary tibial tray , 10 mm high flex posterior stabilized tibial polyethylene insert and a 32 mm dome patella. While the cement cured the Betadine soak was used per protocol. When the cement cured the knee was copiously irrigated with pulsatile lavage antibiotic solution with bacitracin. 2 drains were brought out laterally connected to Hemovac. The quadriceps tendon and medial retinaculum were closed with interrupted [id number] #1 Vicryl sutures. The knee was taken through full range of motion and repair was secure. The subcutaneous tissues were closed with 2-0 Vicryl sutures. The skin was closed with anjelica. A sterile dressing was applied. The tourniquet was let down and the patient had good capillary refill to the extremity. The patient tolerated the procedure well. My physician periodicals library assistant Edmundo KNOX assisted in the procedure including prepping draping leg positioning soft tissue retraction instrument management and assisted in the closure ,dressings application and will participate in postoperative care the patient. I attest to the content of the Intraoperative Record and any orders documented therein. Any exceptions are noted below.
[2018-02-19] MEDS: TRAMADOL HCL 50 MG TAB PO PRN (17:09)
[2018-02-19] MEDS: FERROUS GLUCONATE 324 MG TAB PO SCH (18:25)
[2018-02-19] MEDS: INSULIN ASPART 100 UNITS/ML 3 ML PEN SC SCH ×2 (18:28→22:02)
[2018-02-19] MEDS: CEFAZOLIN IV 2,000 MG in SYRINGE 0 ML IV SCH (19:40)
[2018-02-19] MEDS ORDERED: NURSING DECISION MEDICATION ORDER SCH (20:45)
[2018-02-19] MEDS ORDERED: COUGH DROP (SUGAR FREE) LOZ 24 LOZ/1 BOX LOZ ONE (20:49)
[2018-02-19] MEDS ORDERED: INSULIN GLARGINE SOLOSTAR 100 UNITS/ML 3 ML PEN SC ONE (21:00)
[2018-02-19] MEDS ORDERED: CHLORTHALIDONE 25 MG TAB PO SCH (21:00)
[2018-02-19] MEDS ORDERED: COUGH DROP (SUGAR FREE) LOZ 24 LOZ/1 BOX LOZ PRN (21:15)
[2018-02-19] MEDS: ACETAMINOPHEN 500 MG TAB PO SCH (21:54)
[2018-02-19] MEDS: ASPIRIN 81 MG ECTAB PO SCH (21:54)
[2018-02-19] MEDS: SENNA 8.6 MG TAB PO SCH (21:55)
[2018-02-19] MEDS: DOCUSATE SODIUM 100 MG CAP PO SCH (21:55)
[2018-02-19] MEDS: CETIRIZINE HCL 10 MG TAB PO SCH (21:56)
[2018-02-19] MEDS: CYANOCOBALAMIN 500 MCG TAB (VIT B-12) PO SCH (21:56)
[2018-02-19] MEDS: ATORVASTATIN 40 MG TAB PO SCH (21:56)
[2018-02-19] MEDS: PREGABALIN 25MG CAP PO SCH (21:59)
[2018-02-19] MEDS: SODIUM CHLORIDE 0.9% 1000ML 1,000 ML IV SCH (22:01)
[2018-02-19] MEDS: OXYCODONE HCL IR 5 MG TAB (IMMEDIATE RELEASE) PO PRN (23:39)
[2018-02-20] VITALS (8 sets, daily range): BP systolic 122–158; BP diastolic 68–82; PULSE 57–70; TEMP 36.7–37.6; O2SAT 90–98
[2018-02-20] MEDS: TRAMADOL HCL 50 MG TAB PO PRN ×2 (00:52→12:00)
[2018-02-20] MEDS: CEFAZOLIN IV 2,000 MG in SYRINGE 0 ML IV SCH (02:58)
[2018-02-20] MEDS: ACETAMINOPHEN 500 MG TAB PO SCH ×3 (05:58→21:09)
[2018-02-20] MEDS: SODIUM CHLORIDE 0.9% 1000ML 1,000 ML IV SCH ×3 (06:00→21:07)
[2018-02-20 07:18] LABS: HEMATOCRIT 30.6 % (42-52); HEMOGLOBIN 9.7 g/dL (14.0-18.0); MEAN CELL VOLUME 73.4 fL (80-100); MEAN CORPUSCULAR HEMOGLOBIN 23.3 pg (25-34); MEAN CORPUSCULAR HGB CONC 31.7 g/dl (32-36); MEAN PLATELET VOLUME 9.7 fL (7.4-10.4); PLATELET COUNT 184 K/uL (130-400); RED CELL DISTRIBUTION WIDTH CV 17.2 % (11.5-14.5); RED CELL DISTRIBUTION WIDTH SD 46.1 fL (36.4-46.3)
[2018-02-20 07:57] LABS: CALCIUM 7.8 mg/dl (8.5-10.1); CREATININE 1.52 mg/dl (0.60-1.40); POTASSIUM 3.5 mmol/L (3.5-5.1)
--- NOTE | 2018-02-20 08:12 | Orthopedic Progress Note ---
Orthopedic Progress Note Date of Service Feb 20, 2018. Subjective Post OP Day: 1 Reports: feeling well, pain controlled w PO medications, Denies: complaints, chest pain, SOB, nausea / vomiting, light headedness, calf pain Objective calves soft nontender, N/V intact, capillary refill less than 2 sec., dressing C /D/I, A&O x3, toes mobile Date Time Temp Pulse Resp B/P (MAP) Pulse Ox O2 Delivery O2 Flow Rate FiO2 02/20/18 07:15 36.9 57 16 128/76 (93) 91 Room Air 02/20/18 03:34 37.6 60 16 130/75 (93) 91 Room Air 02/19/18 23:40 Room Air 02/19/18 23:24 37.4 61 18 136/76 (96) 94 Room Air 02/19/18 22:30 98 Room Air 02/19/18 21:52 61 158/96 (116) 02/19/18 20:11 96 Nasal Cannula 2.0 02/19/18 20:10 51 104/60 (75) 88 Room Air 02/19/18 19:38 37.1 58 16 118/75 (89) 96 Room Air 02/19/18 16:45 51 16 131/76 (94) 99 Nasal Cannula 2.0 02/19/18 15:57 36.4 51 16 145/84 (104) 100 Nasal Cannula 2.0 02/19/18 15:03 36.4 61 18 139/78 (98) 100 Nasal Cannula 2.0 02/19/18 14:18 36.6 02/19/18 14:17 36.2 50 18 149/85 (106) 100 Nasal Cannula 2.0 02/19/18 13:55 Nasal Cannula 2.0 02/19/18 13:50 36.2 51 18 146/77 (100) 97 Nasal Cannula 2.0 02/19/18 13:50 Room Air 02/19/18 13:30 36.2 50 15 130/76 98 Nasal Cannula 2 02/19/18 13:20 57 15 133/74 98 Nasal Cannula 2 02/19/18 13:10 55 20 119/79 100 Nasal Cannula 2 02/19/18 13:00 56 14 120/73 96 Nasal Cannula 2 02/19/18 12:54 36.0 58 13 116/64 97 Nasal Cannula 2 02/19/18 08:32 36.8 50 20 145/91 95 Room Air Laboratory Results 24 Hours: Test 02/20/18 06:59 Hematocrit 30.6 % Hemoglobin 9.7 g/dL Assessment & Plan Assessment: POD #1, Right TKA, ITB release Inhouse Planning Pain Management: Ultram, Morphine, PO Tylenol, Oxy IR DVT Prophylaxis: TEDs, SCDs, ASA Discharge Planning Discharge Planning: home with home health Pain Management: Ultram, PO Tylenol, Oxy IR DVT Prophylaxis: TEDs, ASA Therapy: Physical Therapy, Occupational Therapy
[2018-02-20] MEDS: ASPIRIN 81 MG ECTAB PO SCH ×2 (08:57→21:04)
[2018-02-20] MEDS: FERROUS GLUCONATE 324 MG TAB PO SCH ×3 (08:58→18:06)
[2018-02-20] MEDS: DOCUSATE SODIUM 100 MG CAP PO SCH ×2 (08:58→21:06)
[2018-02-20] MEDS: MULTIVITAMIN TAB PO SCH (08:58)
[2018-02-20] MEDS: PANTOprazole SOD 40 MG TAB PO SCH (08:59)
[2018-02-20] MEDS: PREGABALIN 150 MG CAP PO SCH (09:06)
[2018-02-20] MEDS: INSULIN ASPART 100 UNITS/ML 3 ML PEN SC SCH ×4 (09:06→21:00)
[2018-02-20] MEDS: OXYCODONE HCL IR 5 MG TAB (IMMEDIATE RELEASE) PO PRN ×3 (09:06→19:31)
--- NOTE | 2018-02-20 09:15 | Clinical Documentation Query ---
CLINICAL DOCUMENTATION QUERY 67 yo male admitted for right TKA has a creatinine level of 1.52, trending up from 1.16. GFR is 46.4, trending down from 64.3. In your clinical opinion is this patient being managed for: ( ) Acute kidney failure ( x ) Not Agree -acute elevated cr. s/p surgery ( ) Other explanation of clinical findings (Please Explain; If no explanation given, this is considered a no response.) ( ) Unable to determine ( ) Need to Discuss (Please call CDS via extension or qliq. If no interaction occurs this is considered a no response.) The medical record reflects the following clinical findings, treatment, and risk factors. Clinical Indicators: As above Treatment: IV hydration, PRPs Risk Factors: S/P surgical intervention, estimated 460 ml blood/fluid loss, obesity Please clarify and document your clinical opinion in the progress notes and discharge summary. Terms such as "probable", "suspected", "likely", "questionable", "possible", or "still to be ruled out" are acceptable. IF IN AGREEMENT, YOU MUST DOCUMENT ABOVE DIAGNOSTIC STATEMENT IN DAILY PROGRESS NOTES AND DISCHARGE SUMMARY. This document is not part of the patient's record. Thank You, Tali Traylor RN [phone]
--- NOTE | 2018-02-20 12:43 | Pharmacy Progress Note ---
Pharmacy Glycemic Short Note 2 Date of Service Feb 20, 2018. OUTPATIENT ANTIDIABETIC REGIMEN: * Metformin 1g PO BID Item Value Date Time Creatinine 1.16 mg/dl 01/21/18 1453 Est Creatinine Clear Calc Drug Dose 73.2 ml/min 01/21/18 1453 Item Value Date Time Creatinine 1.52 mg/dl H 02/20/18 0659 Est Creatinine Clear Calc Drug Dose 55.9 ml/min 02/20/18 0659 Test 02/19/18 13:03 02/19/18 14:13 02/19/18 17:02 02/19/18 20:00 Bedside Glucose 103 mg/dl (70-99) 92 mg/dl (70-99) 126 mg/dl (70-99) 157 mg/dl (70-99) Test 02/19/18 20:51 02/20/18 06:59 02/20/18 08:16 02/20/18 12:12 Bedside Glucose 116 mg/dl (70-99) 119 mg/dl (70-99) 129 mg/dl (70-99) Random Glucose 122 mg/dl (70-99) ASSESSMENT: * POD 1 R TKA - Blood sugars at goal, will loosen CR to prevent hypoglycemia. * Did plan on restarting Metformin today, but SCr = 1.52mg/dl today, will wait until tomorrow after checking SCr PLAN FOR INPATIENT GLYCEMIC CONTROL: * Hold outpatient oral diabetes medications * Bolus insulin * NovoLog per scale ACHS or Q6hrs while NPO * Goal Range: Low 110 mg/dL - High 140 mg/dL * Correction Factor: 30 mg/dL/unit * LOOSEN: Nutritional / Prandial insulin per carb ratio of 1 unit per 15 grams CHO consumed PLAN FOR DISCHARGE: * A1c 6.5%, continue Metformin 1g po BID
[2018-02-20] MEDS: CYANOCOBALAMIN 500 MCG TAB (VIT B-12) PO SCH (21:03)
[2018-02-20] MEDS: ATORVASTATIN 40 MG TAB PO SCH (21:04)
[2018-02-20] MEDS: SENNA 8.6 MG TAB PO SCH (21:05)
[2018-02-20] MEDS: CETIRIZINE HCL 10 MG TAB PO SCH (21:05)
[2018-02-20] MEDS ORDERED: NURSING VERBAL MED ORDER ONE (21:30)
[2018-02-20] MEDS ORDERED: PREGABALIN 100 MG CAP PO SCH (22:00)
[2018-02-20] MEDS: PREGABALIN 25MG CAP PO SCH (22:14)
[2018-02-21] MEDS: OXYCODONE HCL IR 5 MG TAB (IMMEDIATE RELEASE) PO PRN ×2 (04:42→09:10)
[2018-02-21] MEDS: ACETAMINOPHEN 500 MG TAB PO SCH (05:32)
[2018-02-21 06:18] VITALS: BP 123/71; PULSE 61; TEMP 37.2; O2SAT 90
[2018-02-21 06:37] LABS: ALBUMIN 2.9 gm/dl (3.4-5.0); CALCIUM 7.5 mg/dl (8.5-10.1); CREATININE 1.4 mg/dl (0.60-1.40); POTASSIUM 3.3 mmol/L (3.5-5.1); TOTAL PROTEIN 5.9 gm/dl (6.4-8.2)
[2018-02-21] MEDS ORDERED: POTASSIUM CHLORIDE 10 MEQ TABCR PO STA (07:28)
--- NOTE | 2018-02-21 07:37 | Progress Note ---
Progress Note Date of Service Feb 21, 2018. Progress Note I got a called when I carrying team pager, K is love, I replaced with Kcl 20meq po, hospitalist signed out already, primary team please continue follow, call us if anything needs, advice patient need to follow up with PCP in 3-4 days, and BMP need to be checked in the follow visit with pcp
--- NOTE | 2018-02-21 07:56 | Orthopedic Progress Note ---
Orthopedic Progress Note Date of Service Feb 21, 2018. Subjective Post OP Day: 2 Reports: feeling well, pain controlled w PO medications, Denies: complaints, chest pain, SOB, nausea / vomiting, light headedness, calf pain Objective calves soft nontender, N/V intact, capillary refill less than 2 sec., dressing C /D/I, incision C/D/I, A&O x3, toes mobile Date Time Temp Pulse Resp B/P (MAP) Pulse Ox O2 Delivery O2 Flow Rate FiO2 02/21/18 06:18 37.2 61 17 123/71 (88) 90 Room Air 02/20/18 23:40 Room Air 02/20/18 23:25 37.1 60 18 122/72 (89) 90 Room Air 02/20/18 22:13 92 Room Air 02/20/18 21:01 62 136/68 (90) 02/20/18 19:30 61 150/80 (103) 02/20/18 16:35 Room Air 02/20/18 14:53 36.7 70 18 158/82 (107) 98 Room Air 02/20/18 11:34 36.9 59 16 124/76 (92) 93 Room Air Assessment & Plan Assessment: POD #2, Right TKA, ITB release Plan: Home w HH today Blood work to check K+ Saturday and f/u w PCP. Inhouse Planning Pain Management: Ultram, Morphine, PO Tylenol, Oxy IR DVT Prophylaxis: TEDs, SCDs, ASA Discharge Planning Discharge Planning: home with home health Pain Management: Ultram, PO Tylenol, Oxy IR DVT Prophylaxis: TEDs, ASA Therapy: Physical Therapy, Occupational Therapy
[2018-02-21] MEDS: INSULIN ASPART 100 UNITS/ML 3 ML PEN SC SCH (07:58)
[2018-02-21] MEDS: FERROUS GLUCONATE 324 MG TAB PO SCH (07:59)
[2018-02-21] MEDS ORDERED: RXC5 PO (07:59)
[2018-02-21] MEDS: DOCUSATE SODIUM 100 MG CAP PO SCH (07:59)
[2018-02-21] MEDS ORDERED: ASPI-320 PO (07:59)
[2018-02-21] MEDS ORDERED: ACET-24 PO (07:59)
[2018-02-21] MEDS: PANTOprazole SOD 40 MG TAB PO SCH (08:00)
[2018-02-21] MEDS: MULTIVITAMIN TAB PO SCH (08:00)
[2018-02-21] MEDS: ASPIRIN 81 MG ECTAB PO SCH (08:00)
--- NOTE | 2018-02-21 08:01 | Discharge Instructions ---
Discharge Instructions Date of Service Feb 21, 2018. Admission Reason for Admission: Right Knee Osteoarthritis Discharge Discharge Diagnosis / Problem: Right TKA Discharge Goals Goal(s): Improve function Activity Recommendations Activity Limitations: as noted below . Instructions / Follow-Up Instructions / Follow-Up ACTIVITY RECOMMENDATIONS: SELF CARE INSTRUCTIONS AFTER TOTAL KNEE REPLACEMENT A. You may need to continue a physical therapy program after discharge from the hospital. There are several options available to you. Your doctor will assist you in selecting the best one for you. 1. An out-patient facility 2 to 3 times a week for therapy or home therapy. 2. Continue working on all exercises taught to you in the hospital. Your goals should be to increase bending of your knee to 90 degrees and beyond and to fully straighten your knee. B. You may progress at your own pace from walking with a walker or crutches to a cane; then to no assistive devices. C. Make walking a part of your daily routine. Be up as much as comfortable with rest periods throughout the day. Rest with leg elevation is very important. Use the ice wrap frequently for the first 3-4 weeks. D. There are no restrictions on activities. You may ride in a car, shop, participate in line dancer and all social activities. E. Wear the long elastic stockings (GUILHERME hose) 20 hours a day for 2 weeks after surgery. They can be removed several times a day for laundering and for a bath. F. You may shower, no tub baths until cleared by your doctor. SPECIAL CARE INSTRUCTIONS: VERY IMPORTANT TO READ AND REVIEW A. There are a few signs you need to watch for after you are home. Call [facility] if you notice any of the followin. Increased severe knee pain. Some pain is expected especially when you exercise. 2. Increased swelling in your leg or knee; pain or swelling of the calf muscle in either lower leg. 3. Any fluid drainage from the incision. 4. Shortness of breath or chest pain. B. Please call [facility] at if you have any concerns or questions about your operation or recovery. The doctor or his nurse will return your call promptly. C. You must take antibiotics before dental work, bladder, bowel or other surgery. Your doctor will provide you with a permanent care to carry describing this precaution. IMPORTANT: * REMEMBER TO TAKE ASPIRIN, 81 MG, TWICE DAILY FOR 4 WEEKS UNLESS OTHERWISE DIRECTED. THIS IS YOUR BLOOD THINNER. * HIGH RISK PATIENTS MAY BE PRESCRIBED A STRONGER BLOOD THINNER. THIS WILL BE PROVIDED AT DISCHARGE. * CALL IF INCREASED PAIN, REDNESS, DRAINAGE OR FEVER GREATER THAT 101. * WEAR GUILHERME HOSE 20 HOURS PER DAY FOR 2 WEEKS. * YOU MAY HAVE A LARGE BAND-AID LIKE DRESSING (SILVERON). THIS WILL REMAIN ON YOUR INCISION FOR 7 DAYS, THEN CAN BE REMOVED. IF INCISION IS LEAKING THROUGH DRESSING, CALL THE OFFICE . FOLLOW UP VISIT: If appointment is not already scheduled: Please call [facility] to make a follow-up appointment for 2 weeks after your surgery at . YOU HAVE BEEN GIVEN A PRESCRIPTION FOR LAB WORK. PLEASE GET YOUR BLOOD DRAWN Saturday02/24/18 AND MAKE AN APPT WITH YOU PCP TO REVIEW THE LAB WORK. YOUR POTASSIUM WAS LOW IN THE HOSPITAL AND IT NEEDS TO BE CHECKED. Current Hospital Diet Patient's current hospital diet: Diabetes Type 2 Diet Discharge Diet Recommended Diet: Regular Diet Procedures Procedures Performed: Right Total Knee Arthroplastylateral release ITB release Pending Studies Studies pending at discharge: no Laboratory Results Hemoglobin A1c Test 01/21/18 14:53 Range/Units Estimated Average Glucose 140 mg/dl Hemoglobin A1c 6.5 H 4.5-5.6 % Lipid Panel Test 11/26/17 14:25 Range/Units Triglycerides Level 307 H 0-150 mg/dl Cholesterol Level 114 0-200 mg/dl HDL Cholesterol 27 mg/dl Cholesterol/HDL Ratio 4.2 LDL Cholesterol, Calculated 26 mg/dl Medical Emergencies . Who to Call and When: Medical Emergencies: If at any time you feel your situation is an emergency, please call 911 immediately. . Non-Emergent Contact Non-Emergency issues call your: Primary Care Provider . "Provider Documentation" section prepared by Brent John. . [place] Drug Monitoring Program Search Results: patient reviewed within database, no issues identified
[2018-02-21] MEDS: PREGABALIN 150 MG CAP PO SCH (08:05)
[2018-02-21] MEDS: SODIUM CHLORIDE 0.9% 1000ML 1,000 ML IV SCH (09:30)
[2018-02-21 09:39] VITALS: BP 123/71; PULSE 61; TEMP 37.2; O2SAT 90
--- NOTE | 2018-02-24 14:30 | DISCHARGE SUMMARY ---
DISCHARGE DIAGNOSIS: Degenerative joint disease, right knee. SECONDARY DIAGNOSES: Hypertension, hypercholesterolemia, diabetes mellitus, history of deep vein thrombosis in the past, degenerative joint disease of the spine, sciatica, obesity, benign prostatic hyperplasia. CONSULTS: Loena Junior PA-C/Divya Douglas MD COMPLICATIONS: None. PROCEDURES: Right total knee arthroplasty performed by Dr. Owen on 02/19/2018. BRIEF HISTORY: As dictated in the history and physical. HOSPITAL SUMMARY: The patient was admitted on the above-noted date and the above-noted surgery performed which he tolerated well. On the first postoperative day, he was feeling well, pain was controlled, and had no complaints. Calves were soft, nontender. Neurovascularly intact. Dressings were clean, dry and intact. Toes were mobile. Vital signs were stable. He was afebrile. Hemoglobin was 9.7 and he was started on physical therapy protocol and continued on DVT prophylaxis and pain management. By his second postoperative day, he was feeling well and pain was controlled. He had no complaints. Calves were soft, nontender. Neurovascularly was intact. Incision was benign. Toes were mobile. Vital signs were stable. He was afebrile. He had a noted low potassium of 3.3. Dr. Leach was called with the report and he started the patient on 20 mEq of potassium. Plans will be for the patient to have his followup with his primary care physician in 3-4 days and a [facility] to recheck the potassium. Rest of his stay was essentially uneventful and by 02/21/2018, he was progressing well with his physical therapy and remaining stable and it was felt he could be discharged to home. For further review, please see chart. LAB AND X-RAY DATA: As per chart. DISCHARGE INSTRUCTIONS: The patient was discharged home in satisfactory condition on 02/21/2018. DIET: Regular. ACTIVITY: Follow TKA instruction sheets and special care instructions. Follow up with Dr. Owen in 2 weeks. Also, follow up with his primary care physician shortly after Saturday02/24/2018 to go over BMP, lab results for low potassium. DISCHARGE MEDICATIONS: Acetaminophen at 1000 mg p.o. q. 8 hours for 21 days, aspirin 81 mg p.o. b.i.d. for 30 days, oxycodone 5-10 mg p.o. q. 4 hours p.r.n. Resume home meds as listed. Stop taking original dose of Tylenol; after 30 days, resume your once daily dosing of aspirin and stop taking [place].
== END 2018-02-21 12:13 | disposition home health service (06) | DRG 470 ==
LOC: C.ACU 07:54 → C.3E 08:33 → ENRESERV 13:28
PROVIDERS: ADMIT Orthopaedic Surgery Sports Medicine; ATTEND Orthopaedic Surgery Sports Medicine
PROC: 0SRC0J9 Replacement of Right Knee Joint with Synthetic Substitute, Cemented, Open Approach (ICD-10-PCS; principal; 2018-02-19 10:30)
PROC: 0MNN0ZZ Release Right Knee Bursa and Ligament, Open Approach (ICD-10-PCS; principal; 2018-02-19 10:30)
DX: M17.11 Unilateral primary osteoarthritis, right knee (principal); N17.9 Acute kidney failure, unspecified; M24.561 Contracture, right knee; E87.6 Hypokalemia; I10 Essential (primary) hypertension; E78.00 Pure hypercholesterolemia, unspecified; E11.9 Type 2 diabetes mellitus without complications; R06.83 Snoring; E66.9 Obesity, unspecified; Z68.39 Body mass index [BMI] 39.0-39.9, adult; Z86.718 Personal history of other venous thrombosis and embolism; Z87.891 Personal history of nicotine dependence; Z96.643 Presence of artificial hip joint, bilateral; Z98.890 Other specified postprocedural states; Z79.82 Long term (current) use of aspirin; Z79.84 Long term (current) use of oral hypoglycemic drugs; Z79.899 Other long term (current) drug therapy; Z91.048 Other nonmedicinal substance allergy status

== ENCOUNTER → 2018-02-24 | Outpatient (CLI) | payer OTHER ==
[~2018-02-24] MED LIST changes: -ACET-1256 PO; +ACET-24 PO; -ACETAMINOPHEN 500 MG TAB PO SCH; +ASPI-320 PO; -ASPI81TA28 PO; -BUPIVACAINE 0.25% 30 ML VIAL ONE; -BUPIVACAINE 0.5 % 5 MG/1 ML PF 10ML VIAL ONE; -CARI350T28 PO; -CEFAZOLIN 2000MG IV PUSH 15 ML IV SCH; -FAMOTIDINE 20 MG TAB PO SCH; -FENTANYL CITRATE INJ 50 MCG/1 ML 2 ML VIAL ONE; -GABAPENTIN 300 MG CAP PO SCH; -HYDR-5688 PO; -LACTATED RINGER'S 1000ML 1,000 ML IV SCH; -METOCLOPRAMIDE HCL 10 MG TAB PO SCH; -MIDAZOLAM HCL 1 MG/ML 2ML VIAL ONE; +PRT/20 PO; -ROPIVACAINE 5MG/ML 30 ML 150 MG, BUPIVACAINE 0.5% MPF INJ 30 ML, EpINEphrine HCL INJ 0.... INFIL SCH; +RXC5 PO
[2018-02-24 13:12] LABS: ALBUMIN 2.9 gm/dl (3.4-5.0); ALT/SGPT 19 U/L (12-78); AST/SGOT 26 U/L (15-37); BLOOD UREA NITROGEN 27 mg/dl (7-18); CALCIUM 8.3 mg/dl (8.5-10.1); CARBON DIOXIDE 30 mmol/L (21-32); GLUCOSE 117 mg/dl (70-99); POTASSIUM 3.7 mmol/L (3.5-5.1); SODIUM 137 mmol/L (136-145)
[2018-02-24 13:14] LABS: ALKALINE PHOSPHATASE 115 U/L (45-117); TOTAL PROTEIN 6.7 gm/dl (6.4-8.2)
== END | disposition home or self-care (01) ==
LOC: C.LABMFLN 10:04
PROVIDERS: ATTEND Physician Assistant
DX: E87.6 Hypokalemia (principal); Z96.659 Presence of unspecified artificial knee joint

== ENCOUNTER → 2018-05-15 | Outpatient (CLI) | payer OTHER ==
[2018-05-15 13:15] LABS: BASO % 0.9 %; BASO ABS # 0.08 K/uL (0-0.2); EOS % 6.8 %; EOS ABS # 0.59 K/uL (0-0.5); HEMATOCRIT 37.2 % (42-52); HEMOGLOBIN 11.2 g/dL (14.0-18.0); IG# 0.02 K/uL (0.00-0.02); LYMPH % 17.9 %; LYMPH ABS # 1.55 K/uL (1.2-3.4); MEAN CELL VOLUME 75.8 fL (80-100); MEAN CORPUSCULAR HEMOGLOBIN 22.8 pg (25-34); MEAN CORPUSCULAR HGB CONC 30.1 g/dl (32-36); MEAN PLATELET VOLUME 10.5 fL (7.4-10.4); MONO % 10.1 %; MONO ABS # 0.87 K/uL (0.11-0.59); NEUT % 64.1 %; NEUT ABS # 5.53 K/uL (1.4-6.5); PLATELET COUNT 314 K/uL (130-400); RED CELL DISTRIBUTION WIDTH CV 16.2 % (11.5-14.5); RED CELL DISTRIBUTION WIDTH SD 45.1 fL (36.4-46.3); WHITE BLOOD COUNT 8.64 K/uL (4.8-10.8)
[2018-05-15 13:46] LABS: ALBUMIN 3.9 gm/dl (3.4-5.0); ALKALINE PHOSPHATASE 127 U/L (45-117); ALT/SGPT 22 U/L (12-78); AST/SGOT 18 U/L (15-37); BLOOD UREA NITROGEN 20 mg/dl (7-18); CALCIUM 8.4 mg/dl (8.5-10.1); CARBON DIOXIDE 26 mmol/L (21-32); CREATININE 1.16 mg/dl (0.60-1.40); GLUCOSE 119 mg/dl (70-99); SODIUM 139 mmol/L (136-145); TOTAL PROTEIN 7.1 gm/dl (6.4-8.2)
== END | disposition home or self-care (01) ==
LOC: C.LABMFLN 09:01
PROVIDERS: ATTEND Internal Medicine Hematology & Oncology
DX: E11.9 Type 2 diabetes mellitus without complications (principal)

== ENCOUNTER → 2018-06-23 | Outpatient (CLI) | payer OTHER | END | disposition home or self-care (01) | LOC: C.LABMFLN 09:57 | PROVIDERS: ATTEND Urology | DX: N40.0 Benign prostatic hyperplasia without lower urinary tract symptoms (principal) ==

== ENCOUNTER 2020-04-20 10:56 | Observation (INO) ==
--- NOTE | 2020-04-18 09:26 | Anesthesiology Consultation ---
Date of Service April 18, 2020 Assessment & Plan (1) Encounter for pre-operative examination: Chart Review Chart Review: Acceptable Risk for Surgery (pending preop Covid testing results ) and Patient NOT seen in Pre Admission Testing - Check BSG AM DOS -Surgeon's office informed of mild leukocytosis and decreased kidney function. Did write FYI note to PCP to follow up with patient postop/outpatient re: kidney function. Will leave to anesthesia discretion if repeat PRP and/or CBC needed prior to surgery. Per nursing assessment 04/15/20, pt resides in [facility]- retired- uses mask and precautions when in public. Did travel to [facility] on April 02 and to [facility]. Awaiting preop Covid results. History Surgery Operation Date: 04/20/20 13:00 Proposed Procedures p Right Knee Quad Tendon Repair - Erasto Owen MD Height/Weight Height: 5 ft 7 in Weight: 101.605 kg Allergies Allergy/AdvReac Type Severity Reaction Status Date / Time adhesive Allergy Unknown REDNESS Verified 04/15/20 15:15 RASH/SKIN TEARING WITH BANDAIDS Medications Home Medications Medication Instructions Recorded Confirmed Last Taken meclizine 25 mg tablet 25 mg PO TID PRN #90 tab 06/08/19 04/15/20 Unknown pen needle, diabetic 32 gauge x #10 ea 06/08/19 06/16/19 Unknown " acetaminophen 500 mg tablet 1,000 mg PO Q6H PRN tab 06/10/19 04/15/20 Unknown primidone 50 mg tablet 50 mg PO HS tab 06/16/19 04/15/20 Unknown ropinirole 0.25 mg tablet 0.75 mg PO HS tab 06/16/19 04/15/20 Unknown clobetasol 0.05 % topical ointment 1 appln TOPICAL BID PRN #60 gm 12/28/19 04/15/20 Unknown metformin 500 mg tablet,extended 500 mg PO BID #90 tab 03/04/20 04/15/20 Unknown release 24 hr aspirin 81 mg PO HS 04/15/20 04/15/20 Unknown atenolol-chlorthalidone 1 tab PO HS 04/15/20 04/15/20 Unknown atorvastatin 40 mg PO HS 04/15/20 04/15/20 Unknown cyanocobalamin (vitamin B-12) 1,000 mcg PO HS 04/15/20 04/15/20 Unknown levocetirizine 5 mg PO HS 04/15/20 04/15/20 Unknown lisinopril 5 mg PO HS 04/15/20 04/15/20 Unknown naproxen sodium [Aleve] 220 mg PO BID 04/15/20 04/15/20 Unknown pantoprazole 40 mg PO HS 04/15/20 04/15/20 Unknown pregabalin [Lyrica] 200 mg PO BID 04/15/20 04/15/20 Unknown Past Medical History Medical History (Updated 04/18/20 @ 09:25 by Hodan Harvey PA-C) Diabetes mellitus, type 2 Dieulafoy's vascular malformation VASCULAR CLIP PLACED STOMACH AREA STOMACH ULCERS-IN THE PAST-TO DISSOLVE- RESOLVED DVT (deep venous thrombosis) S/P LONG TRIP WAS ON COUMADIN SHORT TIME AND OFF-WAS TESTED FOR CLOTTING DISORDERS AND RESULTS NEGATIVE GERD (gastroesophageal reflux disease) Hyperlipidemia Hypertension Osteoarthritis Tremor BILAT HANDS Past Family History Family History Father Colorectal cancer Aunt Diabetes Hypertension Uncle Diabetes Hypertension Denies family history of Ovarian cancer Prostate cancer Myocardial infarction Breast cancer Past Surgical History Surgical History History of arthroscopy LEFT KNEE History of back surgery FUSION LOWER BACK History of bilateral total hip arthroplasty History of colonoscopy MULTIPLE History of esophagogastroduodenoscopy (EGD) History of hand surgery History of hand surgery RIGHT/LEFT GANGLIONS History of hip surgery L RESURFACING/R CHARLEY History of repair of rotator cuff RIGHT/BICEPS REPAIR History of shoulder surgery LEFT History of tonsillectomy History of total knee replacement RIGHT Hx of hand surgery RIGHT THUMB SURGERY Hx of vasectomy Social History Smoking Status: Former smoker tobacco type: cigarettes Do You Dip or Chew Tobacco: No Smoking End Date: 1991 Hx Alcohol Use: Yes Alcohol type: beer alcohol intake frequency: other Alcohol Intake Frequency Comment: RARELY Hx Substance Use: No Testing Laboratory Results Laboratory Tests 12/09/19 04/15/20 04/15/20 08:07 11:43 11:43 WBC 12.08 H Hgb 14.8 Hct 46.8 Plt Count 255 Sodium 139 Potassium 4.4 Chloride 105 Carbon Dioxide 26 BUN 43 H Creatinine 1.85 H Glucose 95 Hemoglobin A1c 7.7 H 04/15/20= GFR= 35.8 Electrocardiogram Date: 10/07/19 Findings: + NSR @ (62)
--- NOTE | 2020-04-19 16:49 | History and Physical Report ---
DATE OF ADMISSION: 04/20/2020 CHIEF COMPLAINT: Right knee injury. HISTORY OF PRESENT ILLNESS: A 70-year-old male patient of Dr. Owen'goldie complaining of a right knee injury status post a fall off of a ladder on 04/14/2020. He was unable to ambulate, presented to the office with a brace and crutches. He was diagnosed with a quad tendon rupture. He does have a previous total knee replacement in the same knee. The patient wished to proceed with a right quad tendon repair. PAST MEDICAL HISTORY: Hypertension, hypercholesterolemia, diabetes mellitus, history of DVT, spine problems, sciatica and obesity. SOCIAL HISTORY: Nonsmoker and nondrinker. PAST SURGICAL HISTORY: Bilateral knees, bilateral hands, bilateral hips and bilateral shoulders. FAMILY HISTORY: Noncontributory. REVIEW OF SYSTEMS: Right knee pain and inability to ambulate. Otherwise, denies any shortness of breath, chest pain, nausea, vomiting or any other joint complaints. MEDICATIONS: 1. Atenolol/hydrochlorothiazide 50/25 daily. 2. Aspirin 81 mg daily. 3. Clobetasol 0.05% ointment apply twice daily to affected area. 4. Atorvastatin 40 mg daily. 5. Lisinopril 5 mg daily. 6. Ozempic 0.25 mg subQ injection weekly. 7. Tylenol 500 mg as needed. 8. Ropinirole 0.25 mg 3 tablets daily at bedtime. 9. Probiotic 10 billion capsule cell. 10. Levocetirizine 5 mg daily. 11. Lyrica 225 mg twice daily. 12. Metformin 750 mg daily. 13. Pantoprazole 40 mg daily. 14. Vitamin B12 daily. ALLERGIES: ADHESIVE. PHYSICAL EXAMINATION: GENERAL: Well-developed, well-nourished 70-year-old male in mild distress due to his knee pain. He is alert and oriented x3 and pleasant. HEENT: Normocephalic, atraumatic. Extraocular motions are intact. Pupils are equal and reactive to light. HEART: Regular rate and rhythm. LUNGS: Clear. ABDOMEN: Soft, nontender, bowel sounds present. EXTREMITIES: Right knee: He presents to the office with a brace and crutches. He has diffuse ecchymosis, positive effusion, 0-50 degrees of range of motion. He has insufficient extensor mechanism with 0/5 knee strength in extension. Varus and valgus stressing are stable. DIAGNOSIS: Right quad tendon rupture, status post total knee replacement in the past. He has a history of hypertension, hypercholesterolemia, diabetes mellitus, deep venous thrombosis, spine problems, sciatica and obesity. PLAN: The patient was advised of his diagnosis. Indications, risks, benefits, postop course have all been reviewed. The patient wished to proceed with a right quad tendon repair. Necessary consent forms, preoperative testing and clearances will be obtained. TONYA
[~2020-04-20 10:56] MED LIST changes: -ACET-24 PO; -ASPI-320 PO; -ATEN-171 PO; -ATOR-24 PO; -CARB1SOL OPB; +CEFAZOLIN 2000MG 2,000 MG/15 ML SYR IV SCH; -CETI10TA84 PO; -CLBCRM30 EXT; -CYAN500T13 PO; -GLC/500 PO; +LACTATED RINGER'S 1,000 ML IV SCH; +MIDAZOLAM HCL 1 MG/ML 2ML VIAL ONE; -PREG1CAP36 PO; -PREG1CAP70 PO; -PRT/20 PO; -RXC5 PO; +fentaNYL citrate 100 MCG/2 ML VIAL ONE
--- NOTE | 2020-04-20 11:45 | History & Physical Bridge Note ---
Date of Service April 20, 2020 History & Physical Bridge Note I have examined the patient, reviewed the History & Physical and in the interval since the performance of the History & Physical I have noted the following changes of clinical significance: no changes noted
[2020-04-20] MEDS ORDERED: BUPIVACAINE/EPINEPHRINE 0.25% 1:200,000 30 ML VIAL ONE (11:48)
[2020-04-20] MEDS ORDERED: HYDROmorphone INJ 2 MG/ML SYR/VIAL IV PRN (12:35)
[2020-04-20] MEDS ORDERED: ePHEDrine sulfate 50 MG/ML AMP IV PRN (12:35)
[2020-04-20] MEDS ORDERED: ONDANSETRON INJ 2 MG/ML 2 ML VIAL IV PRN ×2 (12:35→16:26)
[2020-04-20] MEDS ORDERED: ATROPINE SULFATE 0.1 MG/ML 10ML SYR IV PRN (12:35)
[2020-04-20] MEDS ORDERED: fentaNYL citrate 100 MCG/2 ML VIAL IV PRN (12:35)
[2020-04-20] MEDS ORDERED: ePHEDrine sulfate 50 MG/ML AMP ONE ×3 (13:28→14:01)
[2020-04-20] MEDS ORDERED: ONDANSETRON INJ 2 MG/ML 2 ML VIAL ONE (13:28)
[2020-04-20] MEDS ORDERED: LIDOCAINE HCL 2% 2 ML VIAL/AMP(20MG/ML) INFIL ONE (13:28)
[2020-04-20] MEDS ORDERED: PROPOFOL IV EMULSION 10 MG/ML 20 ML VIAL IV ONE (13:28)
[2020-04-20] MEDS ORDERED: fentaNYL citrate 100 MCG/2 ML VIAL ONE (13:34)
--- NOTE | 2020-04-20 15:03 | Post Operative Brief Note ---
Immediate Post Op Note v1 Date of Surgery April 20, 2020 Pre & Post Diagnosis Operation Date: 04/20/20 13:00 Pre-Op Diagnosis: Right Knee Ruptured Quad Tendon, heterotopic ossification quad tendon, history of prior total knee replacement Post-Op Diagnosis: Right Knee Ruptured Quad Tendon, history of prior total knee replacement, heterotopic ossification quad tendon, disruption lateral retinaculum with intact VMO I identified the patient and participated in the time-out.: Yes Procedure Operation Date: 04/20/20 13:00 Actual Procedures p Right Knee Quad Tendon Repair(Right), excision heterotopic ossification, application superficial wound VAC- Erasto Owen MD Surgeon Erasto Owen MD Cash Register Balancer Edmundo KNOX Estimated Blood Loss 30 Findings Consistent with Post-Op Diagnosis Specimens None Anesthesia Type General Regional Complications none Disposition Accompanied Patient To Recovery: No Disposition: Recovery Room Overlapping Procedure I was immediately available: during the entire case.
--- NOTE | 2020-04-20 15:43 | Anesthesiology Progress Note ---
Date of Service April 20, 2020 Anesthesia Post Procedure Vital Signs Vital Signs: Temp Pulse Pulse Resp BP Pulse Ox 04/20/20 15:35 49 L 17 125/75 100 04/20/20 15:25 52 L 16 125/75 100 04/20/20 15:15 36.1 C L 52 L 18 125/66 100 04/20/20 12:10 47 L 20 127/73 97 04/20/20 11:31 36.8 C 49 L 20 144/77 H 97 Transfer of Care Handoff Completed per policy Notes Mental Status: alert / awake / arousable and participated in evaluation Patient Amnestic to Procedure: Yes Nausea / Vomiting: adequately controlled Pain: adequately controlled Airway Patency, RR, SpO2: stable & adequate BP & HR: stable & adequate Hydration State: stable & adequate Anesthetic Complications: no major complications apparent and Pt Satisfied with anesthetic care
[2020-04-20] MEDS ORDERED: OXYCODONE HCL IR 5 MG TAB (IMMEDIATE RELEASE) PO PRN (16:26)
[2020-04-20] MEDS ORDERED: NALOXONE HCL 0.4 MG/1 ML VIAL/CARP IV PRN (16:26)
[2020-04-20] MEDS ORDERED: MAGNESIUM HYDROXIDE SUSP 30 ML UDC PO PRN (16:26)
[2020-04-20] MEDS ORDERED: HYDROmorphone INJ 0.5 MG/0.5 ML SYR IV PRN (16:26)
--- NOTE | 2020-04-20 16:48 | Operative Report (OR) ---
DATE OF OPERATION: 04/20/2020 INDICATION FOR PROCEDURE: The patient is a 70-year-old male who was up on a ladder, fell down and injured his right knee. He has a history of a total knee replacement in 2018, doing well until this time without any complications. He was unable to walk or extend his knee, went to the Emergency Room. X-rays demonstrates some heterotopic ossification in the quad tendon, some patella baja and soft tissue swelling consistent with quadriceps rupture. Now the implants were loose and they are all satisfactorily well aligned. PREOPERATIVE DIAGNOSES: Right knee acute quadriceps tendon disruption with heterotopic ossification quad tendon, status post prior total knee replacement in 2018. POSTOPERATIVE DIAGNOSES: Right knee acute quadriceps tendon disruption with heterotopic ossification quad tendon, status post prior total knee replacement in 2018 including lateral retinacular tear and a tear of the vastus medialis with intact VMO attachment. PROCEDURE: Right knee quadriceps tendon repair, excision of heterotopic ossification, application of a superficial wound VAC. SURGEON: Erasto Owen MD. CLAIMS DIRECTOR: ABILIO Abbott. ANESTHESIA: Femoral nerve block and general. COMPLICATIONS: None. SPECIMENS: None. OPERATIVE PROCEDURE: The patient was taken to the Operating Room after a femoral nerve block placed in the preop area. The patient was placed under general anesthetic and placed supine on the Operating Room table. Pneumatic tourniquet was placed on the right upper thigh and his right lower extremity was prepped and draped in sterile fashion. His right leg was elevated, exsanguinated with Esmarch bandage. Pneumatic tourniquet was raised to 350 mmHg. Exam demonstrated he had an intact incision. No erythema or drainage. He had ecchymosis from the injury and he had a large defect in the quad tendon at the superior pole of the patella. The collateral ligaments were stable. The polyethylene post was stable. The leg was elevated and exsanguinated with Esmarch bandage. Pneumatic tourniquet was raised to 350 mmHg. The upper 3 cores of incision was used and slightly extended superiorly to expose quad tendon and extensor mechanism. Skin was incised sharply. Subcutaneous tissues were divided down to the defect in the quad tendon and large hematoma was evacuated. .Subcutaneous flaps were developed medially and laterally to fully expose the extensor mechanism injury. The VMO and medial retinaculum attachment was still intact, but just proximal to the VMO, there was a split in the vastus medialis extending about 4 cm through that muscle medially. The entire superior quad tendon was ruptured directly off the superior pole of the patella transversely and then this extended into a lateral retinacular tear that went up proximally along the IT band course. The wound was copiously irrigated with pulsatile lavage antibiotic solution with bacitracin. We irrigated the knee joint out. We irrigated all the hematoma from deep to the quad tendon and anterior to the femur area and the entire hemarthrosis was irrigated out of the joint. We used 3 liters of pulsatile lavage antibiotic solution. After that was completed, the frayed ends of the quad tendon were debrided with a scalpel sharply. During the debridement at the end of the quad tendon, we encountered the heterotopic ossification that was noted on the x-ray films and this was able to be shelled out with a scalpel sharply and the fragment of heterotopic ossification was removed from the quad tendon prior to the placement of the sutures and repair. The attachment site at the superior pole of the patella was debrided with sharp dissection with scalpel, with a rongeur and a curette to get a bleeding bony surface for reattachment of the quad tendon to the patella. After further irrigation, a Krackow type suture was placed into the quad tendon with #5 FiberWire suture. Two limbs of suture were passed with total of 4 sutures exiting at the quad tendon central insertion site. We tested the sutures for stability and strength and the sutures held well and the quadriceps tendon was easily mobilized to its attachment site at the patella. Three longitudinal drill holes were made through the patella. A Hewson suture passer was used to pass a looped Vicryl suture from distal to proximal and then the #5 FiberWire sutures were passed from proximal to distal through the patella and then after further irrigation of the knee joint copiously for a total of 6 liters of irrigation, then the quad tendon was repaired by suturing the #5 FiberWire sutures over the end of the patella and these sutures were sutured individually and then sutured to each other. There was a cuff of tissue centrally that we were able to place interrupted #2 FiberWire sutures in [id number] fashion and imbricated that tissue closure in the central region and then [id number] #2 FiberWire sutures in the lateral retinaculum and the medial quad tendon, fascia. Then the muscle was repaired with [id number] #1 Vicryl sutures. Complete anatomic repair was obtained. With gravity flexion, the knee was able to flex 60 degrees without tension on the repair. The wound was copiously irrigated. The subcutaneous tissues were closed with interrupted 2-0 Vicryl, skin was closed with anjelica and a BETTY Acticoat type wound VAC was placed at the completion of the procedure. The patient was placed into a knee immobilizer, double Gino wrap from foot to thigh was placed initially. The patient had about 30 mL of blood loss and tolerated the procedure well. ABILIO Abbott, is my assistant food service director. He functioned as assistant food service director for the entire procedure. He assisted in soft tissue retraction, assisted in leg positioning, assisted in the subcutaneous and skin closure and application of superficial wound VAC and the patient tolerated the procedure well. I attest to the content of the Intraoperative Record and any orders documented therein. Any exceptions are noted below. TONYA
[2020-04-20] MEDS: SODIUM CHLORIDE 0.9% 1000ML 1,000 ML IV SCH (16:50)
[2020-04-20] MEDS ORDERED: PHARMACY GLYCEMIC MGMT CONSULT PRN (17:23)
[2020-04-20] MEDS ORDERED: CARBOHYDRATES FOR HYPOGLYCEMIA PO PRN (17:30)
[2020-04-20] MEDS ORDERED: GLUCOSE 40% GEL 15 GM TUBE PO PRN (17:30)
[2020-04-20] MEDS ORDERED: GLUCOSE 10 TABS/TUBE PO PRN (17:30)
[2020-04-20] MEDS ORDERED: DEXTROSE 50% 50 ML SYRINGE IV PRN (17:30)
[2020-04-20] MEDS ORDERED: GLUCAGON FOR INJ 1 MG VIAL IM PRN (17:30)
[2020-04-20] MEDS ORDERED: ATENOLOL 50 MG TABLET PO SCH (21:00)
[2020-04-20] MEDS ORDERED: CHLORTHALIDONE 25 MG TAB PO SCH (21:00)
[2020-04-20] MEDS ORDERED: CETIRIZINE HCL 10 MG TABLET PO SCH (21:00)
[2020-04-20] MEDS ORDERED: PANTOprazole 40 MG TAB PO SCH (21:00)
[2020-04-20] MEDS ORDERED: CYANOCOBALAMIN 500 MCG TABLET (VITAMIN B-12) PO SCH (21:00)
[2020-04-20] MEDS ORDERED: lisinopriL 5 MG TAB PO SCH (21:00)
[2020-04-20] MEDS ORDERED: PRIMIDONE 50 MG TAB PO SCH (21:00)
[2020-04-20] MEDS ORDERED: ASPIRIN 81 MG ECTAB PO SCH (21:00)
[2020-04-20] MEDS ORDERED: ROPINIROLE HCL 0.25 MG TABLET PO SCH (21:00)
[2020-04-20] MEDS ORDERED: ATORVASTATIN 40 MG TAB PO SCH (21:00)
[2020-04-20] MEDS: CEFAZOLIN 2000MG 2,000 MG/15 ML SYR IV SCH (21:03)
[2020-04-20] MEDS: DOCUSATE SODIUM 100 MG CAP PO SCH (21:03)
[2020-04-20] MEDS: ACETAMINOPHEN 500 MG TAB PO SCH (21:07)
[2020-04-20] MEDS: PREGABALIN 100 MG CAP PO SCH (21:18)
[2020-04-20] MEDS: INSULIN ASPART 100 UNITS/ML 3 ML PEN SC SCH (21:43)
[2020-04-21] MEDS: SODIUM CHLORIDE 0.9% 1000ML 1,000 ML IV SCH (04:28)
[2020-04-21] MEDS: ACETAMINOPHEN 500 MG TAB PO SCH (05:35)
[2020-04-21] MEDS: CEFAZOLIN 2000MG 2,000 MG/15 ML SYR IV SCH (05:35)
[2020-04-21 06:04] LABS: Hemoglobin 12.1 g/dL (14.0-18.0); Mean Corpuscular Hemoglobin 27.2 pg (25-34); Mean Corpuscular Hgb Conc 31.8 g/dL (32-36); Mean Corpuscular Volume 85.4 fL (80-100); Platelet Count 185 K/uL (130-400); RDW Coefficient of Variation 14.9 % (11.5-14.5); RDW Standard Deviation 46.9 fL (36.4-46.3); Red Blood Count 4.45 M/uL (4.7-6.1); White Blood Count 9.06 K/uL (4.8-10.8)
[2020-04-21 06:33] LABS: Calcium 7.8 mg/dl (8.5-10.1); Creatinine Clr Calc Pharmacy 53.7 ml/min; Est GFR (African American) 54.8; Est GFR (Non-African American) 47.3; Potassium 3.9 mmol/L (3.5-5.1)
--- NOTE | 2020-04-21 07:56 | Orthopedic Progress Note ---
Date of Service April 21, 2020 Assessment & Plan (1) Quadriceps tendon rupture: POD #1, Right quad tendon repair WBAT w immobilizer in extension, no flexion. Walker as needed. No PT at this point. DVT proph- ASA and Xarelto Admission and Anticipated Discharge Date Admission Date: April 20, 2020 Subjective POD #1, Feeling well. Pain controlled well. Denies SOB/ CP/ N/V. Physical Exam Physical Exam: Right knee dressings c/d/i. No drainage. Toes/ ankle mobile. No calf tenderness. A&Ox3. Results & Data ([facility]) Vital Signs (Past 12 Hours) Vital Signs Temp Pulse Resp BP BP Pulse Ox 04/21/20 03:35 36.6 C 58 L 20 112/67 92 04/20/20 23:19 36.8 C 53 L 20 118/63 96
[2020-04-21] MEDS ORDERED: METFORMIN HCL ER 500 MG TABCR PO SCH (08:00)
[2020-04-21 08:32] LABS: Estimated Average Glucose 128 mg/dl; Hemoglobin A1C 6.1 % (4.5-5.6)
[2020-04-21] MEDS ORDERED: MULTIVITAMIN TAB PO SCH (09:00)
[2020-04-21] MEDS: PREGABALIN 100 MG CAP PO SCH (09:00)
[2020-04-21] MEDS ORDERED: RIVAROXABAN 10 MG TABLET PO SCH (09:00)
[2020-04-21] MEDS: DOCUSATE SODIUM 100 MG CAP PO SCH (09:01)
[2020-04-21] MEDS: INSULIN ASPART 100 UNITS/ML 3 ML PEN SC SCH (09:19)
--- NOTE | 2020-04-21 10:18 | Pharmacy Report ---
Glycemic Control Consultation - Date of Service April 21, 2020 - Scope Scope: Glycemic Pharmacist consulted for glycemic control and to write orders per [facility] inpatient glycemic control protocol. - Objective Weight: 106.8 kg Accuchecks BSG (last 24hrs): 04/20/20 04/20/20 04/20/20 11:15 16:04 17:17 Glucose POC Glucose 109 H 110 H 90 04/20/20 04/21/20 04/21/20 20:35 05:41 08:32 Glucose 107 H POC Glucose 105 H 103 H Laboratory Data (last 24hrs): 04/21/20 05:41 Potassium 3.9 Carbon Dioxide 26 Anion Gap 6.0 Creatinine 1.47 H Est Cr Clr Drug Dosing 53.7 HbA1c: Hemoglobin A1c 6.1 % (4.5-5.6) H 04/21/20 05:41 - Recent Pertinent Medications Outpatient Anti-diabetic Regimen: * Metformin ER 500 mg PO BIDM * A1c = 6.1% from 04/21/20 * Down from 7.7% in November 2019 Risk Factors for Insulin Resistance: * Recent Surgery: POD #1 s/p R knee quad tendon repair * Diet: T2DM - Assessment & Plan Assessment & Plan: ASSESSMENT: * 70 yo M admitted to undergo R knee quad tendon repair * PMHx significant for T2DM, HTN, HLD, GERD * A1c shows excellent outpatient control of T2DM on metformin monotherapy * Today is POD #1. Patient is received Metformin as inpatient, first dose this AM. Novolog loose CF will be added in case of hyperglycemia * Fasting BSG this AM was 103 mg/dL. PLAN FOR INPATIENT GLYCEMIC CONTROL: * Oral Agents: * Metformin ER 500 mg PO BIDM * Bolus insulin * NovoLog per scale ACHS or Q6hrs while NPO * Goal Range: Low 110 mg/dL - High 140 mg/dL * Correction Factor: 35 mg/dL/unit * No Carb Ratio * Please note that the plan above was derived based on current level of insulin resistance and hospital stress. These recommendations are appropriate for inpatient admission only. Plan of care upon discharge will need to be reassessed to avoid potential outpatient hypo/hyperglycemia. Thank you.
--- NOTE | 2020-04-25 17:44 | Discharge Summary (DS) ---
DISCHARGE DIAGNOSIS: Right knee acute quadriceps tendon disruption. SECONDARY DIAGNOSES: Hypertension, hypercholesterolemia, diabetes mellitus, history of DVT, sciatica, obesity. CONSULTATIONS: None. COMPLICATIONS: None. PROCEDURES: Right knee quadriceps tendon repair, excision of heterotopic ossification, application of superficial wound VAC by Dr. Owen on 04/20/2020. BRIEF HISTORY: As dictated in the history and physical. HOSPITAL SUMMARY: The patient was admitted on the above date and had the above-noted surgery performed, which he tolerated well. On his first postoperative day, he was feeling well, pain was controlled and he denied shortness of breath, chest pain, nausea, or vomiting. Dressings were clean, dry and intact. Toes were mobile. He had no calf tenderness and he is alert and oriented x3. Vital signs were stable and he was afebrile. It was noted that his kidney function was elevated, but improved from preop testing. He was started on a walker as needed, weightbearing as tolerated with immobilizer in extension, no flexion. Off the shelf postop knee orthosis which was a hinged knee brace was placed by orthotics later in the morning on 04/21/2020 without difficulty. He went through PT and OT and was remaining stable, and it was felt he could be discharged to home. For further review, please see chart. LABORATORY AND X-RAY DATA: As per chart. DISCHARGE INSTRUCTIONS: The patient was discharged home in satisfactory condition on 04/21/2020. DIET: Diabetic. ACTIVITY: Change the dressing on second postoperative day and replace with sterile dry dressings daily, shower postoperative day 2 after dressing change, may weightbear as tolerated with walker. Must wear immobilizer with weightbearing with the knee straight, may not bend the knee. Remove immobilizer/brace when lying down, but do not bend the knee. Keep wound VAC on for 1 week. He had been given medication to prevent blood clots during the postoperative period. Follow up with Dr. Owen in 10-12 days postop. The patient to call for an appointment. DISCHARGE MEDICATIONS: Acetaminophen 1000 mg p.o. q.8 hours, oxycodone 5 mg p.o. q.4 hours p.r.n., Xarelto 10 mg p.o. daily. Resume home meds as listed. Stop taking naproxen.
== END 2020-04-21 10:50 | disposition home or self-care (01) ==
LOC: ASU 10:56 → INTOOBSV 15:29 → 3E 15:29

== ENCOUNTER 2023-01-02 11:51 | Observation (INO) ==
--- NOTE | 2022-12-17 15:32 | PAT Medication Instructions ---
Medication Instructions Date of Service December 17, 2022 Home Medications Medication Instructions Recorded meclizine 25 mg tablet 25 mg PO TID PRN dizziness #90 tabs 05/30/21 atorvastatin 40 mg tablet 40 mg PO HS #90 tabs 07/12/22 febuxostat 40 mg tablet (Uloric) 40 mg PO DAILY 90 days #90 tabs 10/17/22 dulaglutide 0.75 mg/0.5 mL 0.75 mg (0.5 mL) subcut .weekly #6 10/31/22 subcutaneous pen injector mL (Trulicity) metformin 500 mg tablet,extended 500 mg PO BID #360 tabs 11/14/22 release 24 hr atenolol 50 mg tablet 50 mg PO .qHS #90 tabs 11/22/22 furosemide 20 mg tablet 20 mg PO QAM #90 tabs 11/22/22 levocetirizine 5 mg tablet 5 mg PO HS #90 tabs 11/26/22 cholecalciferol (vitamin D3) 1,250 50,000 unit PO .weekly #12 caps 12/03/22 mcg (50,000 unit) capsule pantoprazole 40 mg tablet,delayed 40 mg PO HS #90 tabs 12/03/22 release clobetasol 0.05 % topical ointment 1 applic topical BID PRN itching 12/17/22 #6 tubes colchicine 0.6 mg tablet 0.6 mg PO BID PRN gout flare #30 12/17/22 tabs fluticasone propionate 50 2 spray intranasal DAILY #48 grams 12/17/22 mcg/actuation nasal spray,suspension (Allergy Relief (fluticasone)) meclizine 25 mg tablet 25 mg PO TID PRN dizziness pregabalin 225 mg capsule (Lyrica) 225 mg PO BID atorvastatin 40 mg tablet 40 mg PO HS primidone 50 mg tablet 50 mg PO BID pregabalin 50 mg capsule (Lyrica) 50 mg PO BID febuxostat 40 mg tablet (Uloric) 40 mg PO DAILY dulaglutide 0.75 mg/0.5 mL subcutaneous pen injector (Trulicity) 0.75 mg (0.5 mL) subcut .weekly metformin 500 mg tablet,extended release 24 hr 500 mg PO BID atenolol 50 mg tablet 50 mg PO .qHS furosemide 20 mg tablet 20 mg PO QAM levocetirizine 5 mg tablet 5 mg PO HS cholecalciferol (vitamin D3) 1,250 mcg (50,000 unit) capsule 50,000 unit PO .weekly pantoprazole 40 mg tablet,delayed release 40 mg PO HS magnesium oxide 400 mg PO BID acetaminophen 500 mg tablet (Tylenol Extra Strength) 1,000 mg PO Q8 PRN Pain aspirin 81 mg tablet,delayed release (Adult Low Dose Aspirin) 81 mg PO HS clobetasol 0.05 % topical ointment 1 applic topical BID PRN itching colchicine 0.6 mg tablet 0.6 mg PO BID PRN gout flare cyanocobalamin (vitamin B-12) 1,000 mcg capsule 1,000 mcg PO HS docusate sodium 100 mg capsule 100 mg PO DAILY PRN Constipation empagliflozin 10 mg tablet (Jardiance) 10 mg PO HS fluticasone propionate 50 mcg/actuation nasal spray,suspension (Allergy Relief (fluticasone)) 2 spray intranasal DAILY hydrochlorothiazide 12.5 mg tablet 12.5 mg PO HS lisinopril 40 mg tablet 40 mg PO HS Continue as directed primidone 50 mg tablet 50 mg PO BID febuxostat 40 mg tablet (Uloric) 40 mg PO DAILY dulaglutide 0.75 mg/0.5 mL subcutaneous pen injector (Trulicity) 0.75 mg (0.5 mL) subcut .weekly cholecalciferol (vitamin D3) 1,250 mcg (50,000 unit) capsule 50,000 unit PO .weekly (just do not take morning of surgery) fluticasone propionate 50 mcg/actuation nasal spray,suspension (Allergy Relief (fluticasone)) 2 spray intranasal DAILY STOP taking 3 days before surgery empagliflozin 10 mg tablet (Jardiance) 10 mg PO HS STOP taking 24 hours before surgery clobetasol 0.05 % topical ointment 1 applic topical BID PRN itching DO NOT take the morning of surgery metformin 500 mg tablet,extended release 24 hr 500 mg PO BID furosemide 20 mg tablet 20 mg PO QAM magnesium oxide 400 mg PO BID docusate sodium 100 mg capsule 100 mg PO DAILY PRN Constipation colchicine 0.6 mg tablet 0.6 mg PO BID PRN gout flare Take morning of surgery With a small sip of water, OTHERWISE NOTHING TO EAT OR DRINK AFTER MIDNIGHT: meclizine 25 mg tablet 25 mg PO TID PRN dizziness (if needed) pregabalin 225 mg capsule (Lyrica) 225 mg PO BID pregabalin 50 mg capsule (Lyrica) 50 mg PO BID acetaminophen 500 mg tablet (Tylenol Extra Strength) 1,000 mg PO Q8 PRN Pain (if needed) Take evening before surgery meclizine 25 mg tablet 25 mg PO TID PRN dizziness (if needed) pregabalin 225 mg capsule (Lyrica) 225 mg PO BID atorvastatin 40 mg tablet 40 mg PO HS pregabalin 50 mg capsule (Lyrica) 50 mg PO BID metformin 500 mg tablet,extended release 24 hr 500 mg PO BID atenolol 50 mg tablet 50 mg PO .qHS levocetirizine 5 mg tablet 5 mg PO HS pantoprazole 40 mg tablet,delayed release 40 mg PO HS magnesium oxide 400 mg PO BID acetaminophen 500 mg tablet (Tylenol Extra Strength) 1,000 mg PO Q8 PRN Pain (if needed) aspirin 81 mg tablet,delayed release (Adult Low Dose Aspirin) 81 mg PO HS (unless surgeon directed otherwise) colchicine 0.6 mg tablet 0.6 mg PO BID PRN gout flare (if needed) cyanocobalamin (vitamin B-12) 1,000 mcg capsule 1,000 mcg PO HS docusate sodium 100 mg capsule 100 mg PO DAILY PRN Constipation (if needed) hydrochlorothiazide 12.5 mg tablet 12.5 mg PO HS lisinopril 40 mg tablet 40 mg PO HS Other Notes If you have any questions please call us at [phone] or [phone] or [phone] or [phone]
--- NOTE | 2022-12-20 11:20 | Anesthesiology Consultation ---
Date of Service December 20, 2022 Assessment & Plan (1) Encounter for pre-operative examination: - COVID screening: Per assessment on 12/20: No known COVID-19 positive contacts or current COVID-19 related symptoms. Travel screen negative. Patient vaccinated. At surgeon discretion if preop Covid testing being done. - Check [facility] AM DOS - Outpatient joint assessment: Pt currently scheduled for inpatient pathway. If surgeon requests review for outpatient joint pathway, patient is not recommended candidate for outpatient joint program from anesthesia standpoint. - PCP office visit (12/14/22): "Pt presents for preoperative evaluation. Past medical history of DM, HTN, HLD, gout, CKD3, BPH, GERD. Recent issues with elevated blood pressure. Controlled in office today. Will add Jardiance to DM regimen as recommended by nephrology. Jardiance 2 week sample given in office. Colchicine was changed to prn dosing only for acute flare. Pt has appt with nephrology on 12/31/2022, will need preoperative clearance from nephrology prior to surgery. Did send message to nephrology to make them aware. Pt is scheduled on 12/20/2022 for preoperative testing. Can not provide risk until EKG, urine and labs are reviewed, will add addendum once labs are reviewed." - Patient acceptable risk for surgery pending PCP addendum after reviewing preop testing ([facility]). Chart Review Chart Review: Patient seen in Pre Admission Testing History Surgery Operation Date: 01/02/23 11:55 Proposed Procedures p Right Reverse Total Shoulder Arthroplasty - Erasto Owen MD Height/Weight Height: 5 ft 7 in Weight: 112.8 kg Allergies Allergy/AdvReac Type Severity Reaction Status Date / Time cat dander Allergy Intermediate Itchy, Verified 12/18/22 16:13 watery eyes adhesive Allergy Mild Redness Verified 12/18/22 16:13 rash, skin tearing with bandaids Medications Home Medications Medication Instructions Recorded Confirmed Last Taken meclizine 25 mg tablet 25 mg PO TID PRN dizziness #90 tabs 05/30/21 12/17/22 Unknown pregabalin 225 mg capsule (Lyrica) 225 mg PO BID 04/10/22 12/17/22 Unknown atorvastatin 40 mg tablet 40 mg PO HS #90 tabs 07/12/22 12/17/22 Unknown primidone 50 mg tablet 50 mg PO BID 08/09/22 12/17/22 Unknown pregabalin 50 mg capsule (Lyrica) 50 mg PO BID 10/09/22 12/17/22 Unknown febuxostat 40 mg tablet (Uloric) 40 mg PO DAILY 90 days #90 tabs 10/17/22 12/14/22 Unknown dulaglutide 0.75 mg/0.5 mL 0.75 mg (0.5 mL) subcut .weekly #6 10/31/22 12/17/22 Unknown subcutaneous pen injector mL (Trulicity) metformin 500 mg tablet,extended 500 mg PO BID #360 tabs 11/14/22 12/17/22 Unknown release 24 hr atenolol 50 mg tablet 50 mg PO .qHS #90 tabs 11/22/22 12/17/22 Unknown furosemide 20 mg tablet 20 mg PO QAM #90 tabs 11/22/22 12/17/22 Unknown levocetirizine 5 mg tablet 5 mg PO HS #90 tabs 11/26/22 12/17/22 Unknown cholecalciferol (vitamin D3) 1,250 50,000 unit PO .weekly #12 caps 12/03/22 12/17/22 Unknown mcg (50,000 unit) capsule pantoprazole 40 mg tablet,delayed 40 mg PO HS #90 tabs 12/03/22 12/17/22 Unknown release magnesium oxide 400 mg PO BID 12/14/22 12/17/22 Unknown acetaminophen 500 mg tablet 1,000 mg PO Q8 PRN Pain 12/17/22 12/17/22 Unknown (Tylenol Extra Strength) aspirin 81 mg tablet,delayed 81 mg PO HS 12/17/22 12/17/22 Unknown release (Adult Low Dose Aspirin) clobetasol 0.05 % topical ointment 1 applic topical BID PRN itching 12/17/22 12/17/22 Unknown #6 tubes colchicine 0.6 mg tablet 0.6 mg PO BID PRN gout flare #30 12/17/22 Unknown tabs cyanocobalamin (vitamin B-12) 1,000 mcg PO HS 12/17/22 12/17/22 Unknown 1,000 mcg capsule docusate sodium 100 mg capsule 100 mg PO DAILY PRN Constipation 12/17/22 12/17/22 Unknown empagliflozin 10 mg tablet 10 mg PO HS 12/17/22 12/17/22 Unknown (Jardiance) fluticasone propionate 50 2 spray intranasal DAILY #48 grams 12/17/22 12/17/22 Unknown mcg/actuation nasal spray,suspension (Allergy Relief (fluticasone)) hydrochlorothiazide 12.5 mg tablet 12.5 mg PO HS 12/17/22 12/17/22 Unknown lisinopril 40 mg tablet 40 mg PO HS 12/17/22 12/17/22 Unknown Past Medical History Medical History Anemia 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, GFR 30-44 and albumin creatinine ratio >300 mg/g Diabetes mellitus, type 2 Dieulafoy's vascular malformation s/p vascular clip to stomach area/stomach ulcers > resolved, no transfusion needed (4 years ago) DVT (deep venous thrombosis) 20+ years ago (after long trip), was on coumadin for short period after GERD (gastroesophageal reflux disease) controlled, stable per pt Hx of gout Hyperlipidemia Hypertension controlled, stable per pt Obesity Osteoarthritis Peripheral neuropathy Diabetic polyneuropathy per [facility], ambulates with cane Tremor hands; essential tremor per [facility] Exercise / Class Metabolic Activity II 4-5 Yardwork/Stairs/Walk up hill Past Family History Family History Father Colorectal cancer Aunt Diabetes Hypertension Uncle Diabetes Hypertension Other No family history of adverse response to anesthesia Denies family history of Ovarian cancer Prostate cancer Myocardial infarction Breast cancer Past Surgical History Surgical History History of arthroscopy LEFT KNEE History of back surgery FUSION LOWER BACK History of bilateral total hip arthroplasty History of cataract removal with insertion of prosthetic lens History of colonoscopy History of esophagogastroduodenoscopy (EGD) History of hand surgery RIGHT/LEFT GANGLIONS History of left knee replacement Left TKA (12/06/21): SAB (L2/3) + PNB at [facility]. History of repair of rotator cuff RIGHT/BICEPS REPAIR History of shoulder surgery LEFT History of tonsillectomy History of total knee replacement RIGHT 02/19/2018: SAB at L3-L4, 1 attempt + PNB. No issues per anesthesia postop progress note. Hx of hand surgery RIGHT THUMB SURGERY Hx of vasectomy S/P tendon repair Right quad tendon repair, Application of wound vac (04/20/20): LMA#5 atraumatic x 1 + PNB. No issues per anesthesia postop progress note. Past Anesthesia History No Hx of Anesthesia Complications and No Family Hx of Anesthesia Complications History of PONV No Hx of PONV and No Hx of Motion Sickness Social History Smoking Status: Former smoker tobacco type: cigarettes Do You Dip or Chew Tobacco: No Smoking End Date: 1991 Hx Alcohol Use: Yes alcohol intake frequency: other (Very rare) Hx Substance Use: No substance use type: does not use Review of Systems Patient denies chest pain, shortness of breath, dyspnea on exertion, fever, chills, cough, wheezing, palpitations. Physical Exam Vital Signs VITALS BP 118/73 P 60 TEMP 98.2 SP02 95%RA RESP 16 PHYSICAL Full cervical extension range of motion. Full TMJ range of motion. TMD 3 finger breaths Mallampati Score 3 Dentition: several molars Lungs: clear throughout to auscultation Cardiac: regular rate and rhythm, no murmurs noted Spine: normal Carotid arteries: negative bruit Extremities: no edema Lab Results Anesthesia Preop Results Results Anesthesia Widget: WBC 8.03 K/ul (4.8-10.8) 12/20/22 Hgb 14.6 g/dl (14.0-18.0) 12/20/22 Hct 44.4 % (42.0-52.0) 12/20/22 Plt 185 K/uL (130-400) 12/20/22 Na 142 mmol/L (136-145) 12/20/22 K 4.6 mmol/L (3.5-5.1) 12/20/22 Cl 105 mmol/L (98-107) 12/20/22 CO2 32 mmol/L (21-32) 12/20/22 BUN 39 mg/dl (6-23) H 12/20/22 Creat 1.92 mg/dl (0.6-1.4) H 12/20/22 Glucose Level 106 mg/dl (70-99(Fasting)) H 12/20/22 PT 11.2 Seconds (9.0-12.0) 12/20/22 PTT 29.3 Seconds (21.0-31.0) 12/20/22 INR 1.1 (0.9-1.1) 12/20/22 HA1c 6.3 % (4.5-5.6) H 12/20/22 Urine Color Yellow 12/20/22 Urine Appearance Clear (Clear) 12/20/22 Urine pH 7.0 (4.5-7.5) 12/20/22 Urine Specific [place] 1.014 (1.000-1.030) 12/20/22 Urine Protein 1+ (Negative) H 12/20/22 Urine Glucose (UA) 3+ (Negative) H 12/20/22 Urine Ketones Negative (Negative) 12/20/22 Urine Blood Negative (Negative) 12/20/22 Urine Nitrite Negative (Negative) 12/20/22 Urine Bilirubin Negative (Negative) 12/20/22 Urine Urobilinogen Negative (Negative) 12/20/22 Urine Leukocyte Esterase Negative (Negative) 12/20/22 Urine WBC (Auto) 0 /hpf (0-5) 12/20/22 Urine RBC (Auto) 0-4 /hpf (0-4) 12/20/22 Urine Hyaline Casts (Auto) 0 /lpf (0-5) 12/20/22 Urine Epithelial Cells (Auto) 0-5 /lpf (0-5) 12/20/22 Urine Bacteria (Auto) Negative (Negative) 12/20/22 Blood Type O Positive 12/20/22 Antibody Screen NEGATIVE 12/20/22 Testing Electrocardiogram Date: 12/20/22 SB at 57bpm. Chest X-Ray Date: 12/20/22 FINDINGS: No lines and tubes are seen. The aorta is tortuous. The remainder of the cardiomediastinal silhouette is unremarkable. The lungs are clear. No evidence of pleural effusion or pneumothorax. Degenerative changes are seen in the spine. IMPRESSION: No acute chest disease. COVID-19 Risk Screen Screening Information COVID-19 Screen Date: 12/20/22 Exposure 21 Days Family/Household +COVID Last 21 Days: No Exposure 10 Days Any COVID Exposure Last 10 Days: No Symptoms Last 10 Days Experienced COVID Sx Last 10 Days: No + COVID 0-90 Days COVID + in Last 0-90 Days: No
--- NOTE | 2022-12-31 09:52 | History & Physical Report ---
Date of Service December 31, 2022 Assessment & Plan (1) Rotator cuff arthropathy of right shoulder: Plan: Treatment options discussed with the patient. He has failed conservative measures. He has a large retracted rotator cuff tear. He would like to proceed with surgical intervention. Risks, benefits and alternatives to surgery including but not limited to infection, DVT, pain, stiffness, need for revision surgery, damage to blood vessels, damage to nerves, PE, , were discussed with the patient and they wish to proceed. Plan for right reverse total shoulder arthroplasty scheduled for [facility] on January [address] Owen. All questions answered. Patient follow-up postop. Patient History of Present Illness Chief Complaint: Right shoulder pain Primary Care Provider: Twyla Weber DO 72-year-old male with past medical history significant for hypertension, high cholesterol, diabetes CKD who presents with ongoing right shoulder pain. Pain is interfering with his daily activities. He has failed conservative measures. He would like to proceed with surgical intervention. Patient denies headaches, sweats, fevers, chills, double vision, blurred vision, cough, sore throat, dysphagia, chest pain, sob, wheezing, n/v/d/c, numbness, tingling, fatigue, urinary symptoms, mood disorders. ROS positive for right shoulder pain and stiffness. Allergies Allergy/AdvReac Type Severity Reaction Status Date / Time cat dander Allergy Intermediate Itchy, Verified 12/18/22 16:13 watery eyes adhesive Allergy Mild Redness Verified 12/18/22 16:13 rash, skin tearing with bandaids Home Medications Medication Instructions Recorded Confirmed Type meclizine 25 mg tablet 25 mg PO TID PRN dizziness #90 tabs 05/30/21 12/17/22 Rx pregabalin 225 mg capsule (Lyrica) 225 mg PO BID 04/10/22 12/17/22 History primidone 50 mg tablet 50 mg PO BID 08/09/22 12/17/22 History pregabalin 50 mg capsule (Lyrica) 50 mg PO BID 10/09/22 12/17/22 History febuxostat 40 mg tablet (Uloric) 40 mg PO DAILY 90 days #90 tabs 10/17/22 12/14/22 Rx metformin 500 mg tablet,extended 500 mg PO BID #360 tabs 11/14/22 12/17/22 Rx release 24 hr atenolol 50 mg tablet 50 mg PO .qHS #90 tabs 11/22/22 12/17/22 Rx furosemide 20 mg tablet 20 mg PO QAM #90 tabs 11/22/22 12/17/22 Rx levocetirizine 5 mg tablet 5 mg PO HS #90 tabs 11/26/22 12/17/22 Rx cholecalciferol (vitamin D3) 1,250 50,000 unit PO .weekly #12 caps 12/03/22 12/17/22 Rx mcg (50,000 unit) capsule pantoprazole 40 mg tablet,delayed 40 mg PO HS #90 tabs 12/03/22 12/17/22 Rx release magnesium oxide 400 mg PO BID 12/14/22 12/17/22 History acetaminophen 500 mg tablet 1,000 mg PO Q8 PRN Pain 12/17/22 12/17/22 History (Tylenol Extra Strength) aspirin 81 mg tablet,delayed 81 mg PO HS 12/17/22 12/17/22 History release (Adult Low Dose Aspirin) clobetasol 0.05 % topical ointment 1 applic topical BID PRN itching 12/17/22 12/17/22 Rx #6 tubes colchicine 0.6 mg tablet 0.6 mg PO BID PRN gout flare #30 12/17/22 Rx tabs cyanocobalamin (vitamin B-12) 1,000 mcg PO HS 12/17/22 12/17/22 History 1,000 mcg capsule docusate sodium 100 mg capsule 100 mg PO DAILY PRN Constipation 12/17/22 12/17/22 History empagliflozin 10 mg tablet 10 mg PO HS 12/17/22 12/17/22 History (Jardiance) fluticasone propionate 50 2 spray intranasal DAILY #48 grams 12/17/22 12/17/22 Rx mcg/actuation nasal spray,suspension (Allergy Relief (fluticasone)) hydrochlorothiazide 12.5 mg tablet 12.5 mg PO HS 12/17/22 12/17/22 History lisinopril 40 mg tablet 40 mg PO HS 12/17/22 12/17/22 History atorvastatin 40 mg tablet 40 mg PO HS #90 tabs 12/21/22 Rx dulaglutide 0.75 mg/0.5 mL 0.75 mg (0.5 mL) subcut .weekly #6 12/21/22 Rx subcutaneous pen injector mL (Trulicity) Past Med/Surg History Medical History Anemia 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, GFR 30-44 and albumin creatinine ratio >300 mg/g Diabetes mellitus, type 2 Dieulafoy's vascular malformation DVT (deep venous thrombosis) GERD (gastroesophageal reflux disease) Hx of gout Hyperlipidemia Hypertension Obesity Osteoarthritis Peripheral neuropathy Tremor Surgical History History of arthroscopy History of back surgery History of bilateral total hip arthroplasty History of cataract removal with insertion of prosthetic lens History of colonoscopy History of esophagogastroduodenoscopy (EGD) History of hand surgery History of left knee replacement History of repair of rotator cuff History of shoulder surgery History of tonsillectomy History of total knee replacement Hx of hand surgery Hx of vasectomy S/P tendon repair Family History Father Colorectal cancer Aunt Diabetes Hypertension Uncle Diabetes Hypertension Other No family history of adverse response to anesthesia Denies family history of Ovarian cancer Prostate cancer Myocardial infarction Breast cancer Social History Smoking Status: Former smoker Age Started Using Tobacco: 15; Age Quit Using Tobacco: 48; packs per day: 1; Second Hand Exposure: Yes (hx); Hx Alcohol Use: Yes Alcohol type: beer Alcohol Intake Frequency: Monthly or Less Hx Substance Use: No Preferred Language: Swedish Communication Ability: Effective Visual Impairment: Limited Hearing Ability: Normal 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 Harness Rigger Required: No Beliefs That Will Affect Care: None marital status: Current Living Situation: Spouse current occupational status: retired Feels Safe at Home: Yes Childhood Exposure to Second-Hand Smoke: Yes caffeine: Yes Dental Care, Regularly: Yes Physical Activity Frequency: 5-6 Times per Week Physical Activity Frequency Comment: housework/walking Seatbelt Use: always Sunscreen Use: No Do you think of yourself as: straight/heterosexual Assistive Devices: Cane and Glasses Review of Systems All systems reviewed & are unremarkable except as noted in HPI & below Physical Exam Constitutional: well developed and well nourished; no acute distress Eyes: PERRL, conjunctivae normal, anicteric sclerae ENMT: external ear and nose normal, oropharynx normal Neck: trachea midline, no thyromegaly Respiratory: normal respiratory effort, lungs clear to auscultation Cardiovascular: RRR, no murmur, no edema Musculoskeletal: Right shoulder: Tenderness anterolateral acromion. Positive impingement signs. Pain with resisted strength testing. Painful range of motion. Abduction to 120 degrees, forward flexion to 160 degrees, external rotation at 90 degrees. Strength testin+/5 external rotation, 4+/5 internal rotation, 3+/5 abduction. Skin: no rashes, warm and dry Neurologic: patellar DTR's 2+ bilat, sensation intact Psychiatric: A+Ox3, euthymic affect Results & Data ([facility]) Diagnostic Findings Right shoulder radiographs demonstrate arthritic changes glenohumeral joint and AC joint. CT arthrogram demonstrates large full-thickness rotator cuff tear with retraction.
[~2023-01-02 11:51] MED LIST changes: +ACETAMINOPHEN 500 MG TAB PO SCH; +BUPIVACAINE 0.5 % 5 MG/1 ML PF 10ML VIAL ONE; -CEFAZOLIN 2000MG 2,000 MG/15 ML SYR IV SCH; +CeleBREX 200 MG CAP PO SCH; +FAMOTIDINE 20 MG TAB PO SCH; +GABAPENTIN 300 MG CAP PO SCH; -LACTATED RINGER'S 1,000 ML IV SCH; +LIDOCAINE 2% MPF LOCAL 5 ML VIAL INFIL ONE; +LR 15ML/HR IV SCH; +METOCLOPRAMIDE HCL 10 MG TABLET PO SCH; -MIDAZOLAM HCL 1 MG/ML 2ML VIAL ONE; +TRANEXAMIC ACID 1,000 MG **IV Intra-op IV SCH; +TRANEXAMIC ACID 1,000 MG **IV Pre-op IV SCH; +ceFAZolin 2000MG 2,000 MG/15 ML SYR IV SCH; -fentaNYL citrate 100 MCG/2 ML VIAL ONE
[2023-01-02] MEDS ORDERED: ONDANSETRON INJ 2 MG/ML 2 ML VIAL ONE (12:21)
[2023-01-02] MEDS ORDERED: PROPOFOL IV EMULSION 10 MG/ML 20 ML VIAL IV ONE (12:21)
[2023-01-02] MEDS ORDERED: ROCURONIUM BROMIDE 10 MG/ML 5 ML VIAL IV ONE (12:21)
[2023-01-02] MEDS ORDERED: fentaNYL citrate PF 100 MCG/2 ML VIAL ONE (12:21)
[2023-01-02] MEDS ORDERED: LIDOCAINE 2% MPF LOCAL 5 ML VIAL INFIL ONE (12:21)
[2023-01-02] MEDS ORDERED: MIDAZOLAM HCL 1 MG/ML 2ML VIAL ONE (12:21)
--- NOTE | 2023-01-02 14:34 | History & Physical Bridge Note ---
Date of Service January 02, 2023 History & Physical Bridge Note I have examined the patient, reviewed the History & Physical and in the interval since the performance of the History & Physical I have noted the following changes of clinical significance: no changes noted
[2023-01-02] MEDS ORDERED: ePHEDrine sulfate 50 MG/ML AMP ONE (15:17)
[2023-01-02] MEDS ORDERED: ATROPINE SULFATE 0.1 MG/ML 10ML SYR IV PRN (15:33)
[2023-01-02] MEDS ORDERED: ONDANSETRON INJ 2 MG/ML 2 ML VIAL IV PRN ×2 (15:33→20:28)
[2023-01-02] MEDS ORDERED: HYDROmorphone INJ 1 MG/ML SYRINGE IV PRN (15:33)
[2023-01-02] MEDS ORDERED: ePHEDrine sulfate 50 MG/ML AMP IV PRN (15:33)
[2023-01-02] MEDS ORDERED: PHENYLEPHRINE 100MCG/ML 5ML SYR ONE (15:43)
[2023-01-02] MEDS ORDERED: SUGAMMADEX SODIUM 200 MG/2 ML VIAL IV ONE (17:40)
--- NOTE | 2023-01-02 18:33 | Operative Report ---
Post Operative Report Pre & Post Diagnosis Operation Date: 01/02/23 14:30 Pre-Op Diagnosis: Right Shoulder rotator cuff arthropathy. Posttraumatic failure rotator cuff repair. Long head biceps rupture. Post-Op Diagnosis: Same with irreparable rotator cuff tear rotator cuff tendinopathy. I identified the patient and participated in the time-out.: Yes Procedure Operation Date: 01/02/23 14:30 Actual Procedures p Right Reverse Total Shoulder Arthroplasty(Right), debridement of old suture anchors and suture material.- Erasto Owen MD Surgeon Erasto Owen MD Speech/Language Therapist Edmundo KNOX, Pradip KNOX Estimated Blood Loss 175 Findings Consistent with Post-Op Diagnosis Specimens Humeral head Drains 2 Hemovac Anesthesia Type General Regional Complications none Disposition Accompanied Patient To Recovery: No Disposition: Recovery Room Indications 72-year-old male who had an injury to his right shoulder more of a traction injury. He had pain weakness afterwards failed conservative management and is limited function of the shoulder and chronic pain. Patient has a torn rotator cuff and failed prior rotator cuff repair. Date of surgery exam demonstrated he only had 80 degrees of abduction and 90 degrees of forward flexion actively. Description of Procedure The patient was taken to the operating room and anesthetized under regional block and general anesthetic. The patient was positioned on the operating table in a 30 beach chair position with a towel roll under the medial border of the right scapula. The arm was draped free to be able to manipulate the shoulder as needed. The right upper extremity was prepped and draped in usual sterile fashion. Exam demonstrated generally obese arm. He had a Lb muscle with mild retraction of the biceps. Benign old arthroscopic scars from surgery. Forward flexion was 140 degrees and abduction was 70 degrees and external rota tion was 60 degrees. An anterior deltopectoral approach was performed. A longitudinal incision was made in the deltopectoral interval. The skin was incised sharply. Subcutaneous flaps were elevated off the fascia. The cephalic vein was dissected out and retracted lateral with the deltoid. There was also some large concomitant veins adjacent to the cephalic vein. The clavipectoral fascia was divided at the lateral margin of the conjoined tendon and extended up to the CA ligament. The following findings were noted: There was a thin tendinopathic subscapularis tendon but it was still intact. There was a rotator cuff tear involving the supraspinatus and infraspinatus tendon with intact teres minor. There were old sutures from repair that failed with soft tissue failure and sutures and knots were still intact. No anchors pulled out.. The upper centimeter of the pectoralis was released for inferior exposure. A self-retaining retractor was placed. The biceps tendon findings demonstrated that there was still some biceps tendon underlying the pectoralis but proximally there was just attenuated biceps tendon tissue from prior rupture or tendon release.. the biceps tendon was tenodesed to the pectoralis tendon with #2 FiberWire to prevent any further retraction. The vestigial thin proximal biceps was resected. The subscapularis muscle fibers were split longitudinally at the level of the circumflex vessels. The circumflex vessels were identified and tied off with silk ties and divided laterally. A Kitner elevator was used to free up the inferior fibers of the subscapularis off of the capsule. The axillary nerve was identified with a tug test and protected with a blunt Renae retractor between the nerve and the capsule. The subscapularis tendon was then taken down off of the lesser tuberosity subperiosteally, a Vicryl traction suture was placed and a subperiosteal dissection was performed along the neck of the humerus as the arm was gradually externally rotated exposing the humeral head. The humeral head findings demonstrated minor osteophytes and grade 3 arthritic changes with some periarticular spurs superior and lateral at the rotator cuff tear site adjacent to the supraspinatus and infraspinatus.. retractors were readjusted and the small inferior osteophytes were all resected using a small rongeur. A Castellanos elevator was used to assist in releasing the capsule of the neck of the humerus. The capsule was divided with Munoz scissors down to the glenoid released off the anterior glenoid and the rotator interval was released to meet the capsular release and a 360 release of the subscapularis was accomplished. A Fukuda retractor was placed into the joint retracting the humeral head posterior. Glenoid findings demonstrated some spurs around the glenoid with grade III chondromalacia no exposed bone. The labrum was resected. an anterior-inferior and posterior inferior capsular release were performed with electrocautery and a Castellanos elevator on bone with the axillary nerve protected inferiorly by the retractor. Triceps tendon was released. Attention was then taken to the humeral preparation. The cutting guide was placed into the humeral head. It was positioned at 20 of retroversion. Oscillating saw was used to resect the humeral head giving the cut above the level of the posterior rotator cuff insertion site. Peek suture anchors were removed from the greater tuberosity area as they would impede the preparation of the humerus without removing them. Multiple strands of old suture material were removed as well using a rongeur and scalpel. The humerus was then prepared for the stem. I used the ascend flex stem from [employer]. The sizing broaches were used followed by trial broaches up to a size 3B standard which had the a ppropriate fit and fill. Patient had very dense hard metaphyseal bone so I chose to use a standard stem. The appropriate sized cut protector was placed. The humerus was then retracted posterior to the glenoid. The glenoid was sized for a 29. The guide for the baseplate was positioned in a 10 inferior tilt and the central drill hole was made. The reamer for the 29 baseplate was used. The central drill was widened for the peg. The glenoid bone was very dense so we slightly widened the central peg hole in order not to fracture the glenoid. The aequalis hydroxyapatite-coated 29 mm standard post baseplate was impacted into position. The base plate was transfixed with superior and inferior locking screws and anterior and posterior compression screws with stable fixation. The fan reamer was used for the 42 millimeter glenoid sphere. After irrigation the 42 mm symmetrical glenoid sphere was impacted onto the baseplate and the security screw was tightened. Attention was taken back to the humerus. The cut protector was removed and the +0 high offset humeral tray trial was assembled to the trial stem rotated appropriately to get bony coverage and then screwed in position. A trial reduction was performed. A +6, 42 reversed trial insert demonstrated good stability and no shuck. The trials were removed. 3 drill holes are made into the harder bone in the bicipital groove area and 3 #5 FiberWire sutures were placed transosseously. The canal was irrigated with pulse saline solution. The final component was assembled. The final component was ascend flex humeral stem 3B standard 74 mm length assembled to the plus or high offset humeral tray and the 42+6 polyethylene reversed humeral insert. This was then impacted into the humerus with a tight press-fit. It was reduced to the glenoid sphere. Stability was verified. Subscapularis was repaired with the #5 FiberWire sutures using Adam-Raymundo suture technique. Lateral row soft tissue repair was performed with #2 FiberWire [id number] sutures. The pectoralis was repaired with #2 FiberWire [id number] sutures reinforcing the biceps tendon tenodesis. The arm was taken through a range of motion which demonstrated 75 degrees of abduction and 140 degrees forward flexion and 60 degrees external rotation without any tension on repair. The implant was stable through the range of motion tested. The wound was copiously irrigated. 2 Hemovac drains were placed. The deltopectoral interval was closed with [id number] #1 Vicryl sutures. The subcutaneous tissues were closed with 2- 0 Vicryl sutures. The skin was closed with anjelica. Sterile dressings were applied and a shoulder immobilizer. Pradip KNOX my physician quality assistant acted as certified surgical tech/first assistant throughout the procedure .she performed functions including patient positioning, arm positioning, prepping and draping, soft tissue retraction, instrument management, suture management and performed the subcutaneous and skin closure and will participate in the postoperative care of the patient. Edmundo KNOX also assisted in the procedure assisted in patient positioning retraction wound closure and postoperative care as well. I attest to the content of the Intraoperative Record and any orders documented therein. Any exceptions are noted below.
[2023-01-02] MEDS ORDERED: DOCUSATE SODIUM 100 MG CAP PO PRN (20:28)
[2023-01-02] MEDS ORDERED: MAGNESIUM HYDROXIDE SUSP 30 ML UDC PO PRN (20:28)
[2023-01-02] MEDS ORDERED: PHARMACY GLYCEMIC MGMT CONSULT PRN (20:28)
[2023-01-02] MEDS ORDERED: diphenhydrAMINE Capsule 25 MG CAP PO PRN (20:28)
[2023-01-02] MEDS ORDERED: SODIUM CHLORIDE 0.9% 1000ML 1,000 ML IV SCH (20:28)
[2023-01-02] MEDS ORDERED: METOCLOPRAMIDE HCL INJ 5 MG/ML 2 ML VIAL IV PRN (20:28)
[2023-01-02] MEDS ORDERED: MECLIZINE HCL 25 MG TAB PO PRN (20:28)
[2023-01-02] MEDS ORDERED: COLCHICINE 0.6 MG TAB PO PRN (20:28)
[2023-01-02] MEDS ORDERED: NALOXONE HCL 0.4 MG/1 ML VIAL/CARP IV PRN (20:28)
[2023-01-02] MEDS ORDERED: bisacodyL 10 MG SUPP PR PRN (20:28)
[2023-01-02] MEDS ORDERED: HYDROmorphone INJ 0.5 MG/0.5 ML SYR IV PRN (20:28)
[2023-01-02] MEDS ORDERED: CLOBETASOL PROPIONATE 0.05% OINT 15 GM TUBE EXT PRN (20:51)
[2023-01-02] MEDS ORDERED: EMPAGLIFLOZIN 10 MG TAB PO SCH (21:00)
[2023-01-02] MEDS ORDERED: GLUCOSE 40% GEL 15 GM TUBE PO PRN (21:00)
[2023-01-02] MEDS ORDERED: DEXTROSE 50% 50 ML SYRINGE IV PRN (21:00)
[2023-01-02] MEDS ORDERED: metFORMIN HCL ER 500 MG TABCR PO SCH (21:00)
[2023-01-02] MEDS ORDERED: GLUCOSE 10 TAB/TUBE PO PRN (21:00)
[2023-01-02] MEDS ORDERED: CARBOHYDRATES FOR HYPOGLYCEMIA PO PRN (21:00)
[2023-01-02] MEDS ORDERED: GLUCAGON FOR INJ 1 MG VIAL IM PRN (21:00)
[2023-01-02] MEDS: lisinopril 40 MG TAB PO SCH (21:24)
[2023-01-02] MEDS: SENNA 8.6 MG TAB PO SCH (21:24)
[2023-01-02] MEDS: ATENOLOL 50 MG TABLET PO SCH (21:24)
[2023-01-02] MEDS: DOCUSATE SODIUM 100 MG CAP PO SCH (21:24)
[2023-01-02] MEDS: CYANOCOBALAMIN (B-12) 500 MCG TABLET PO SCH (21:24)
[2023-01-02] MEDS: rOPINIRole HCL 0.25 MG TABLET PO SCH (21:24)
[2023-01-02] MEDS: CETIRIZINE HCL 10 MG TABLET PO SCH (21:25)
[2023-01-02] MEDS: PRIMIDONE 50 MG TAB PO SCH (21:25)
[2023-01-02] MEDS: PANTOprazole 40 MG TAB PO SCH (21:25)
[2023-01-02] MEDS: ASPIRIN 81 MG ECTAB PO SCH (21:25)
[2023-01-02] MEDS: ATORVASTATIN 40 MG TAB PO SCH (21:25)
[2023-01-02] MEDS: ACETAMINOPHEN 500 MG TAB PO SCH (21:26)
[2023-01-02] MEDS: MAGNESIUM OXIDE 400 MG TAB PO SCH (21:26)
[2023-01-02] MEDS: INSULIN ASPART PER UNIT SC SCH (21:27)
[2023-01-02] MEDS: PREGABALIN 75 MG CAP PO SCH (21:32)
[2023-01-02] MEDS: PREGABALIN 50 MG CAP PO SCH (21:32)
--- NOTE | 2023-01-02 21:45 | Anesthesiology Progress Note ---
Date of Service January 02, 2023 Anesthesia Post Procedure Vital Signs Vital Signs: Temp Pulse Pulse Resp BP BP Pulse Ox 01/02/23 21:31 36.4 C L 63 20 179/86 H 94 01/02/23 20:40 36.4 C L 66 18 154/83 H 95 01/02/23 20:10 36.4 C L 63 18 154/75 H 94 01/02/23 18:55 66 21 139/80 95 01/02/23 19:25 65 21 139/81 92 01/02/23 19:15 36.4 C L 64 20 142/75 H 94 01/02/23 19:05 65 24 136/73 92 01/02/23 18:45 67 19 145/80 H 97 01/02/23 18:38 36.5 C 73 14 140/69 90 01/02/23 12:41 36.5 C 59 L 20 153/83 H 95 O2 Del Method O2 Flow Rate 01/02/23 21:31 Nasal Cannula 2 01/02/23 20:40 Nasal Cannula 2 01/02/23 20:10 Room Air 01/02/23 18:55 Oxymask 4 01/02/23 19:25 Nasal Cannula 2 01/02/23 19:15 Nasal Cannula 2 01/02/23 19:05 Nasal Cannula 2 01/02/23 18:45 Oxymask 10 01/02/23 18:38 Oxymask 10 01/02/23 12:41 Room Air Pain Intensity Right Shoulder: Pain Intensity: 1 Transfer of Care Handoff Completed per policy Notes Mental Status: alert / awake / arousable and participated in evaluation Patient Amnestic to Procedure: Yes Nausea / Vomiting: adequately controlled Pain: adequately controlled Airway Patency, RR, SpO2: stable & adequate BP & HR: stable & adequate Hydration State: stable & adequate Anesthetic Complications: no major complications apparent and Pt Satisfied with anesthetic care
[2023-01-02] MEDS ORDERED: COUGH DROP (SUGAR FREE) LOZ 24 LOZ/1 BOX BUCCAL ONE (23:33)
[2023-01-02] MEDS: ceFAZolin 2000MG 2,000 MG/15 ML SYR IV SCH (23:35)
[2023-01-03] MEDS: ACETAMINOPHEN 500 MG TAB PO SCH ×3 (05:51→21:41)
[2023-01-03] MEDS: ceFAZolin 2000MG 2,000 MG/15 ML SYR IV SCH (06:04)
[2023-01-03 07:49] LABS: Basophils # (auto) 0.07 K/uL (0-0.2); Basophils % (auto) 0.7 %; Eosinophils # (auto) 0.45 K/uL (0-0.50); Eosinophils % (auto) 4.2 %; Hematocrit (blood only) 40.6 % (42.0-52.0); Hemoglobin 13.3 g/dl (14.0-18.0); Immature Granulocytes # (auto) 0.03 K/uL (0.01-0.20); Immature Granulocytes % (auto) 0.3 %; Lymphocytes # (auto) 0.94 K/uL (1.2-3.4); Lymphocytes % (auto) 8.7 %; Mean Corpuscular Hgb Conc 32.8 g/dL (32.0-36.0); Mean Corpuscular Volume 91.6 fL (80.0-100.0); Mean Platelet Volume 10.6 fL (9.4-12.4); Monocytes # (auto) 1.24 K/uL (0.11-0.59); Monocytes % (auto) 11.5 %; Neutrophils # (auto) 8.02 K/uL (1.40-6.50); Neutrophils % (auto) 74.6 %; Platelet Count 163 K/uL (130-400); RDW Coefficient of Variation 14.5 % (11.5-14.5); Red Blood Count 4.43 M/uL (4.70-6.10); White Blood Count 10.75 K/ul (4.8-10.8)
[2023-01-03] MEDS: DOCUSATE SODIUM 100 MG CAP PO SCH ×2 (07:53→21:40)
[2023-01-03] MEDS: ASPIRIN 81 MG ECTAB PO SCH ×2 (07:53→21:36)
[2023-01-03] MEDS: PRIMIDONE 50 MG TAB PO SCH ×2 (07:53→21:39)
[2023-01-03] MEDS: MAGNESIUM OXIDE 400 MG TAB PO SCH ×2 (07:53→21:39)
[2023-01-03] MEDS: MULTIVITAMIN TAB PO SCH (07:53)
[2023-01-03] MEDS: FUROSEMIDE 20 MG TAB PO SCH (07:53)
[2023-01-03] MEDS: FLUTICASONE PROPIONATE NA SPR 16 GM BTL SCH (07:54)
[2023-01-03] MEDS: PREGABALIN 50 MG CAP PO SCH ×2 (07:58→21:45)
[2023-01-03 07:59] LABS: BUN Creatinine Ratio 20.5 (10-20); Calcium 8.8 mg/dl (8.5-10.1); Creatinine Clr Calc Pharmacy 40.5 ml/min; Est GFR (African American) 38.4 ml/min; Est GFR (Non-African American) 33.2 ml/min; Potassium 4.6 mmol/L (3.5-5.1)
[2023-01-03] MEDS: PREGABALIN 75 MG CAP PO SCH ×2 (07:59→21:45)
--- NOTE | 2023-01-03 08:07 | Hospitalist Consultation ---
Date of Consultation January 03, 2023 Assessment & Plan (1) Rotator cuff arthropathy of right shoulder: POD# 1 s/p RIGHT reverse total shoulder w/ Dr Owen WBC wnl, afebrile Hgb 14.6--> 13.3, acute blood loss anemia from surgery and dilutional from IVF Pain control/bowel regimen/PT/OT/DVT prophylaxis per primary service BUN/Cr stable compared to pre-op, making good/clear urine at bedside currently can continues on usual medications/diuretics. Can have f/u nephrology outpatient CXR obtained after working w/ PT for drop in saturation to 70s, had been on O2 last evening. Discussed likely SHANNAN in patient. Also never had echocardiogram, SOB w/ exertion at baseline and reports deconditioning and taking breaks but no chest pain. CXR w/ 1. Cardiomegaly without overt pulmonary edema. 2. There is new right hemidiaphragmatic elevation with mild right basilar atelectasis. 3. Right shoulder arthroplasty. Discussed w/ orthopedics and patient to be provided incentive spirometer and possibly monitor overnight w/ repeat CXR in AM. Also ordered overnight sleep study as will be inpatient. Can arrange O2 at d/c HS if needed (2) Hypoxia: post-op, was on 2L titrated to ROOM AIR when I saw this morning but stated sob w/ exertion but at baseline at home Dropped to 70s working w/ PT Supplemental O2 as needed CXR w/ elevated R hemidiaphragm, likely from nerve block from surgery rec'd incentive spirometer and repeat CXR in AM Will check overnight sleep study given continued inpatient stay Monitor (3) HTN (hypertension): BP stable continue home atenolol 50mg, lasix 20mg, lisinopril 40mg, (4) HLD (hyperlipidemia): continue statin (5) DM II (diabetes mellitus, type II), controlled: BSGs stable, continue SSI while inpatient Jardiance and dulaglutide, metformin at home (6) Chronic kidney disease (CKD): BUN/Cr at baseline since recent labs and ok'd by nephrology continued home meds, rec close f/u w/ nephrology at ut Supervising Physician Co-Signing Physician Notes The patient was seen and examined by me. The chart was reviewed. Case discussed with ABILIO Juarez. Agree with assessment and plan History of Present Illness Reason for Consultation: med management Requesting Physician: Dr Jean Attending Physician: Erasto Owen MD History of Present Illness 72yo male with PMHx significant for HTN, HLD, DM II, CKD, presented for shoulder surgery w/ Dr Owen. Seen in room 320 post-op day 1, doing well. Pain controlled with ordered medications. BUN/Cr stable compared to prior -- he states he saw Dr Murdock on saturday and stable for surgery. Making good urine, clear yellow in urinal currently. Some SOB w/ exertion/walking the halls, but this is present at baseline. No increased LE on his diuretics per nephrology and he notes most comfortable laying flat to sleep. Did discuss possible underlying SHANNAN, he does endorse snoring. Rec f/u PCP for discussion/possible testing. He is hoping to be able to go home today. Allergies Allergy/AdvReac Type Severity Reaction Status Date / Time cat dander Allergy Intermediate Itchy, Verified 01/02/23 12:25 watery eyes adhesive Allergy Mild Redness Verified 01/02/23 12:25 rash, skin tearing with bandaids Home Medications Medication Instructions Recorded Confirmed Type meclizine 25 mg tablet 25 mg PO TID PRN dizziness #90 tabs 05/30/21 01/02/23 Rx pregabalin 225 mg capsule (Lyrica) 225 mg PO BID 04/10/22 01/02/23 History primidone 50 mg tablet 50 mg PO BID 08/09/22 01/02/23 History pregabalin 50 mg capsule (Lyrica) 50 mg PO BID 10/09/22 01/02/23 History febuxostat 40 mg tablet (Uloric) 40 mg PO DAILY 90 days #90 tabs 10/17/22 01/02/23 Rx metformin 500 mg tablet,extended 500 mg PO BID #360 tabs 11/14/22 01/02/23 Rx release 24 hr atenolol 50 mg tablet 50 mg PO .qHS #90 tabs 11/22/22 01/02/23 Rx furosemide 20 mg tablet 20 mg PO QAM #90 tabs 11/22/22 01/02/23 Rx levocetirizine 5 mg tablet 5 mg PO HS #90 tabs 11/26/22 01/02/23 Rx cholecalciferol (vitamin D3) 1,250 50,000 unit PO .weekly #12 caps 12/03/22 01/02/23 Rx mcg (50,000 unit) capsule pantoprazole 40 mg tablet,delayed 40 mg PO HS #90 tabs 12/03/22 01/02/23 Rx release magnesium oxide 400 mg PO BID 12/14/22 01/02/23 History acetaminophen 500 mg tablet 1,000 mg PO Q8 PRN Pain 12/17/22 01/02/23 History (Tylenol Extra Strength) aspirin 81 mg tablet,delayed 81 mg PO HS 12/17/22 01/02/23 History release (Adult Low Dose Aspirin) clobetasol 0.05 % topical ointment 1 applic topical BID PRN itching 12/17/22 01/02/23 Rx #6 tubes colchicine 0.6 mg tablet 0.6 mg PO BID PRN gout flare #30 12/17/22 01/02/23 Rx tabs cyanocobalamin (vitamin B-12) 1,000 mcg PO HS 12/17/22 01/02/23 History 1,000 mcg capsule docusate sodium 100 mg capsule 100 mg PO DAILY PRN Constipation 12/17/22 01/02/23 History empagliflozin 10 mg tablet 10 mg PO HS 12/17/22 01/02/23 History (Jardiance) fluticasone propionate 50 2 spray intranasal DAILY #48 grams 12/17/22 01/02/23 Rx mcg/actuation nasal spray,suspension (Allergy Relief (fluticasone)) lisinopril 40 mg tablet 40 mg PO HS 12/17/22 01/02/23 History atorvastatin 40 mg tablet 40 mg PO HS #90 tabs 12/21/22 01/02/23 Rx dulaglutide 0.75 mg/0.5 mL 0.75 mg (0.5 mL) subcut .weekly #6 12/21/22 01/02/23 Rx subcutaneous pen injector mL (Trulicity) ropinirole 0.25 mg tablet 0.25 mg PO HS 01/01/23 01/02/23 History acetaminophen 500 mg tablet 1,000 mg PO Q8 14 days #84 tabs 01/03/23 Rx (Tylenol Extra Strength) aspirin 81 mg tablet,delayed 81 mg PO BID 30 days #60 tabs 01/03/23 Rx release cefadroxil 500 mg capsule 500 mg PO BID #14 caps 01/03/23 Rx oxycodone 5 mg tablet 5 mg PO Q4H PRN pain #30 tabs 01/03/23 Rx polyethylene glycol 3350 17 gram 17 g PO DAILY PRN constipation #5 01/03/23 Rx oral powder packet (Miralax) ea Patient History Medical History Anemia 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, GFR 30-44 and albumin creatinine ratio >300 mg/g Diabetes mellitus, type 2 Dieulafoy's vascular malformation DVT (deep venous thrombosis) GERD (gastroesophageal reflux disease) Hx of gout Hyperlipidemia Hypertension Obesity Osteoarthritis Peripheral neuropathy Tremor Surgical History History of arthroscopy History of back surgery History of bilateral total hip arthroplasty History of cataract removal with insertion of prosthetic lens History of colonoscopy History of esophagogastroduodenoscopy (EGD) History of hand surgery History of left knee replacement History of repair of rotator cuff History of shoulder surgery History of tonsillectomy History of total knee replacement Hx of hand surgery Hx of vasectomy S/P tendon repair Family History Father Colorectal cancer Aunt Diabetes Hypertension Uncle Diabetes Hypertension Other No family history of adverse response to anesthesia Denies family history of Ovarian cancer Prostate cancer Myocardial infarction Breast cancer Social History Smoking Status: Former smoker Age Started Using Tobacco: 15; Age Quit Using Tobacco: 48; packs per day: 1; Smoking End Date: Quit 1991; Second Hand Exposure: Yes (hx); Do You Dip or Chew Tobacco: No; Tobacco Cessation Education Requested by Patient: No Hx Alcohol Use: Yes Alcohol type: beer Alcohol Intake Frequency: Monthly or Less Hx Substance Use: No Preferred Language: Greek Communication Ability: Effective Visual Impairment: Limited Hearing Ability: Normal 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 Required: No Beliefs That Will Affect Care: None marital status: Current Living Situation: Spouse current occupational status: retired Feels Safe at Home: Yes Childhood Exposure to Second-Hand Smoke: Yes caffeine: Yes Dental Care, Regularly: Yes Physical Activity Frequency: 5-6 Times per Week Physical Activity Frequency Comment: housework/walking Seatbelt Use: always Sunscreen Use: No Do you think of yourself as: straight/heterosexual Assistive Devices: Cane and Glasses Review of Systems Review of Systems: All systems reviewed & are unremarkable except as noted in HPI & below Physical Exam Physical Exam: General: WD/WN obese male sitting up in bed, NAD HEENT: head normocephalic, atraumatic, mmm, trachea midline Resp: decreased in bases R>L, good effort CV: regular rate/rhtyhm, no significant m/r/g, no pitting edema/calf tenderness GI: +BS, soft/NT : voiding spontaneously, urinal w/ clear yellow urine draining MSK/Neuro: no focal deficit, sling to shoulder intact, dressing c/d/i, tender to palpation, NVI, pulses palpable, drain w/ bloody drainage Psych: AOx3, pleasant and cooperative, talkative Results & Data Results & Data ([facility]) Vital Signs (Past 12 Hours) Vital Signs Temp Pulse Resp BP Pulse Ox O2 Del Method O2 Flow Rate 01/03/23 07:25 36.6 C 56 L 16 151/83 H 99 Room Air 01/03/23 03:43 36.8 C 55 L 18 169/99 H 96 Nasal Cannula 1.5 01/02/23 23:23 36.8 C 63 20 149/92 H 95 Nasal Cannula 2 01/02/23 21:31 36.4 C L 63 20 179/86 H 94 Nasal Cannula 2 01/02/23 20:40 36.4 C L 66 18 154/83 H 95 Nasal Cannula 2 01/02/23 20:10 36.4 C L 63 18 154/75 H 94 Room Air Laboratory Results 01/03/23 01/03/23 01/03/23 Range/Units 08:17 07:11 07:11 WBC 10.75 (4.8-10.8) K/ul RBC 4.43 L (4.70-6.10) M/uL Hgb 13.3 L (14.0-18.0) g/dl Hct 40.6 L (42.0-52.0) % MCV 91.6 (80.0-100.0) fL MCH 30.0 (25.0-34.0) pg MCHC 32.8 (32.0-36.0) g/dL RDW Std Deviation 49.0 H (36.4-46.3) fL RDW Coeff of Betzaida 14.5 (11.5-14.5) % Plt Count 163 (130-400) K/uL MPV 10.6 (9.4-12.4) fL Immature Gran % (Auto) 0.3 % Neut % (Auto) 74.6 % Lymph % (Auto) 8.7 % [place] % (Auto) 11.5 % Eos % (Auto) 4.2 % Baso % (Auto) 0.7 % Neut # (Auto) 8.02 H (1.40-6.50) K/uL Lymph # (Auto) 0.94 L (1.2-3.4) K/uL [place] # (Auto) 1.24 H (0.11-0.59) K/uL Eos # (Auto) 0.45 (0-0.50) K/uL Baso # (Auto) 0.07 (0-0.2) K/uL Immature Gran # (Auto) 0.03 (0.01-0.20) K/uL Sodium 140 (136-145) mmol/L Potassium 4.6 (3.5-5.1) mmol/L Chloride 104 (98-107) mmol/L Carbon Dioxide 32 (21-32) mmol/L Anion Gap 4 (3-11) BUN 40 H (6-23) mg/dl Creatinine 1.95 H (0.6-1.4) mg/dl Est Cr Clr Drug Dosing 40.5 ml/min Est GFR ( Amer) 38.4 ml/min Est GFR (Non-Af Amer) 33.2 ml/min BUN/Creatinine Ratio 20.5 H (10-20) Glucose 101 H (70-99(Fasting)) mg/dl POC Glucose 85 (70-99) mg/dl Calcium 8.8 (8.5-10.1) mg/dl SARS-CoV-2, RNA, NAAT (NEGATIVE) 01/02/23 01/02/23 01/02/23 Range/Units Unknown 20:27 18:40 WBC (4.8-10.8) K/ul RBC (4.70-6.10) M/uL Hgb (14.0-18.0) g/dl Hct (42.0-52.0) % MCV (80.0-100.0) fL MCH (25.0-34.0) pg MCHC (32.0-36.0) g/dL RDW Std Deviation (36.4-46.3) fL RDW Coeff of Betzaida (11.5-14.5) % Plt Count (130-400) K/uL MPV (9.4-12.4) fL Immature Gran % (Auto) % Neut % (Auto) % Lymph % (Auto) % [place] % (Auto) % Eos % (Auto) % Baso % (Auto) % Neut # (Auto) (1.40-6.50) K/uL Lymph # (Auto) (1.2-3.4) K/uL [place] # (Auto) (0.11-0.59) K/uL Eos # (Auto) (0-0.50) K/uL Baso # (Auto) (0-0.2) K/uL Immature Gran # (Auto) (0.01-0.20) K/uL Sodium (136-145) mmol/L Potassium (3.5-5.1) mmol/L Chloride (98-107) mmol/L Carbon Dioxide (21-32) mmol/L Anion Gap (3-11) BUN (6-23) mg/dl Creatinine (0.6-1.4) mg/dl Est Cr Clr Drug Dosing ml/min Est GFR ( Amer) ml/min Est GFR (Non-Af Amer) ml/min BUN/Creatinine Ratio (10-20) Glucose (70-99(Fasting)) mg/dl POC Glucose 109 H 97 (70-99) mg/dl Calcium (8.5-10.1) mg/dl SARS-CoV-2, RNA, NAAT NEGATIVE (NEGATIVE) 01/02/23 Range/Units 12:18 WBC (4.8-10.8) K/ul RBC (4.70-6.10) M/uL Hgb (14.0-18.0) g/dl Hct (42.0-52.0) % MCV (80.0-100.0) fL MCH (25.0-34.0) pg MCHC (32.0-36.0) g/dL RDW Std Deviation (36.4-46.3) fL RDW Coeff of Betzaida (11.5-14.5) % Plt Count (130-400) K/uL MPV (9.4-12.4) fL Immature Gran % (Auto) % Neut % (Auto) % Lymph % (Auto) % [place] % (Auto) % Eos % (Auto) % Baso % (Auto) % Neut # (Auto) (1.40-6.50) K/uL Lymph # (Auto) (1.2-3.4) K/uL [place] # (Auto) (0.11-0.59) K/uL Eos # (Auto) (0-0.50) K/uL Baso # (Auto) (0-0.2) K/uL Immature Gran # (Auto) (0.01-0.20) K/uL Sodium (136-145) mmol/L Potassium (3.5-5.1) mmol/L Chloride (98-107) mmol/L Carbon Dioxide (21-32) mmol/L Anion Gap (3-11) BUN (6-23) mg/dl Creatinine (0.6-1.4) mg/dl Est Cr Clr Drug Dosing ml/min Est GFR ( Amer) ml/min Est GFR (Non-Af Amer) ml/min BUN/Creatinine Ratio (10-20) Glucose (70-99(Fasting)) mg/dl POC Glucose 102 H (70-99) mg/dl Calcium (8.5-10.1) mg/dl SARS-CoV-2, RNA, NAAT (NEGATIVE) Diagnostic Findings Shoulder X-Ray 01/02/23 18:46 XR shoulder RT min 2V routine HISTORY: 72 years-old Male Post shoulder surgery right shoulder arthroplasty COMPARISON: Chest radiograph 12/20/2022 TECHNIQUE: 2 views the right shoulder FINDINGS: Reverse right shoulder total joint arthroplasty. Overlying skin anjelica with surgical drainage catheter, expected postoperative soft tissue swelling with deep tissue air. Moderate degeneration of the AC joint. No acute fracture, dislocation or unexpected opaque foreign body. IMPRESSION: Total joint arthroplasty with expected postoperative changes. ACT 112: Negative or not required by law. The above report was generated using voice recognition software. It may contain grammatical, syntax or spelling errors. Electronically signed by: Dusty Brewer M.D. 01/03/2023 8:25 AM Chest X-Ray 01/03/23 09:44 XR chest 1V portable HISTORY: 72 years-old Male hypoxia COMPARISON: Right shoulder radiographs of same day, chest radiograph 12/20/2022 TECHNIQUE: AP view of the chest FINDINGS: Right shoulder arthroplasty with overlying skin anjelica. Cardiac silhouette is enlarged. Mild right hemidiaphragmatic elevation. No pneumothorax or large pleural effusion. Mild subsegmental right basilar densities. Degenerative changes of the shoulders and spine. IMPRESSION: 1. Cardiomegaly without overt pulmonary edema. 2. There is new right hemidiaphragmatic elevation with mild right basilar atelectasis. 3. Right shoulder arthroplasty. ACT 112: Negative or not required by law. The above report was generated using voice recognition software. It may contain grammatical, syntax or spelling errors. Electronically signed by: Dusty Brewer M.D. 01/03/2023 10:06 AM PG Care Time/CCT Total # of Minutes Spent Total Time Spent with Patient: Total time spent is greater than 50% in coordination of care (as documented) at patient's floor/unit and/or counseling patient: Coding Level of Care Code 86099 IN/OBS CONSULT LVL 3,45M Diagnoses Rotator cuff arthropathy of right shoulder M12.811 Hypoxia R09.02 HTN (hypertension) I10 HLD (hyperlipidemia) E78.5 DM II (diabetes mellitus, type II), controlled E11.9 Chronic kidney disease (CKD) N18.9
--- NOTE | 2023-01-03 08:07 | Orthopedic Progress Note ---
Date of Service January 03, 2023 Assessment & Plan (1) Rotator cuff arthropathy of right shoulder: Plan: Postop day 1 status post right reverse total shoulder arthroplasty. PT/OT protocols. Nonweightbearing right upper extremity. DVT prophylaxis-aspirin p.o. twice daily, SCDs, GUILHERME cabrera Pain management as written. Elevated BUN and creatinine. History of CKD. Patient's creatinine has been in the 1.9 area since November of this year. Hospitalist service consulted and will weigh in accordingly. Addendum: I discussed CKD with Hospitalist service. UO over 900cc last night. Pt without significant increase in Creat and remaining stable. Pt follows closely with Nephrology. Plan for dc later today. DC planning-minimal physical therapy initially. Patient planning for discharge to home when stable. Admission and Anticipated Discharge Date Admission Date: January 02, 2023 Subjective Postop day 1 Patient sitting up in bed awake and alert. No complaints this morning. States he did have a little bit of shortness of breath while ambulating the hallways earlier. He states this is his normal if he is ambulating longer distances or g oing up hills. He does not have any shortness of breath at rest at this time. Current oxygen saturation level this morning at 7:25 was 99 on room air. Pain is controlled. States he has some slight numbness and tingling in his right thumb. Physical Exam Physical Exam: Dressings are clean, dry, and intact. Sling is in place. He has good active range of motion of his right wrist and fingers with good strength. Describes some slight decrease sensation in the right thumb. Cap refills less than 2 seconds. Results & Data ([facility]) Vital Signs (Past 12 Hours) Vital Signs Temp Pulse Resp BP Pulse Ox O2 Del Method O2 Flow Rate 01/03/23 07:25 36.6 C 56 L 16 151/83 H 99 Room Air 01/03/23 03:43 36.8 C 55 L 18 169/99 H 96 Nasal Cannula 1.5 01/02/23 23:23 36.8 C 63 20 149/92 H 95 Nasal Cannula 2 01/02/23 21:31 36.4 C L 63 20 179/86 H 94 Nasal Cannula 2 01/02/23 20:40 36.4 C L 66 18 154/83 H 95 Nasal Cannula 2 01/02/23 20:10 36.4 C L 63 18 154/75 H 94 Room Air Laboratory Results Laboratory Results WBC 10.75 K/ul (4.8-10.8) 01/03/23 07:11 RBC 4.43 M/uL (4.70-6.10) L 01/03/23 07:11 Hgb 13.3 g/dl (14.0-18.0) L 01/03/23 07:11 Hct 40.6 % (42.0-52.0) L 01/03/23 07:11 MCV 91.6 fL (80.0-100.0) 01/03/23 07:11 MCH 30.0 pg (25.0-34.0) 01/03/23 07:11 MCHC 32.8 g/dL (32.0-36.0) 01/03/23 07:11 RDW Std Deviation 49.0 fL (36.4-46.3) H 01/03/23 07:11 RDW Coeff of Betzaida 14.5 % (11.5-14.5) 01/03/23 07:11 Plt Count 163 K/uL (130-400) 01/03/23 07:11 MPV 10.6 fL (9.4-12.4) 01/03/23 07:11 Immature Gran % (Auto) 0.3 % 01/03/23 07:11 Neut % (Auto) 74.6 % 01/03/23 07:11 Lymph % (Auto) 8.7 % 01/03/23 07:11 [place] % (Auto) 11.5 % 01/03/23 07:11 Eos % (Auto) 4.2 % 01/03/23 07:11 Baso % (Auto) 0.7 % 01/03/23 07:11 Neut # (Auto) 8.02 K/uL (1.40-6.50) H 01/03/23 07:11 Lymph # (Auto) 0.94 K/uL (1.2-3.4) L 01/03/23 07:11 [place] # (Auto) 1.24 K/uL (0.11-0.59) H 01/03/23 07:11 Eos # (Auto) 0.45 K/uL (0-0.50) 01/03/23 07:11 Baso # (Auto) 0.07 K/uL (0-0.2) 01/03/23 07:11 Immature Gran # (Auto) 0.03 K/uL (0.01-0.20) 01/03/23 07:11 Sodium 140 mmol/L (136-145) 01/03/23 07:11 Potassium 4.6 mmol/L (3.5-5.1) 01/03/23 07:11 Chloride 104 mmol/L (98-107) 01/03/23 07:11 Carbon Dioxide 32 mmol/L (21-32) 01/03/23 07:11 Anion Gap 4 (3-11) 01/03/23 07:11 BUN 40 mg/dl (6-23) H 01/03/23 07:11 Creatinine 1.95 mg/dl (0.6-1.4) H 01/03/23 07:11 Est Cr Clr Drug Dosing 40.5 ml/min 01/03/23 07:11 Est GFR ( Amer) 38.4 ml/min 01/03/23 07:11 Est GFR (Non-Af Amer) 33.2 ml/min 01/03/23 07:11 BUN/Creatinine Ratio 20.5 (10-20) H 01/03/23 07:11 Glucose 101 mg/dl (70-99(Fasting)) H 01/03/23 07:11 POC Glucose 109 mg/dl (70-99) H 01/02/23 20:27 Calcium 8.8 mg/dl (8.5-10.1) 01/03/23 07:11 SARS-CoV-2, RNA, NAAT NEGATIVE (NEGATIVE) 01/02/23 Unknown
--- NOTE | 2023-01-03 08:26 | XRay Report ---
XR shoulder RT min 2V routine HISTORY: 72 years-old Male Post shoulder surgery right shoulder arthroplasty COMPARISON: Chest radiograph 12/20/2022 TECHNIQUE: 2 views the right shoulder FINDINGS: Reverse right shoulder total joint arthroplasty. Overlying skin anjelica with surgical drainage cathet er, expected postoperative soft tissue swelling with deep tissue air. Moderate degeneration of the AC joint. No acute fracture, dislocation or unexpected opaque foreign body. IMPRESSION: Total joint arthroplasty with expected postoperative changes. ACT 112: Negative or not required by law. The above report was generated using voice recognition software. It may contain grammatical, syntax o r spelling errors. Electronically signed by: Dusty Brewer M.D. 01/03/2023 8:25 AM
[2023-01-03] MEDS: INSULIN ASPART PER UNIT SC SCH ×4 (09:34→21:40)
--- NOTE | 2023-01-03 10:09 | XRay Report ---
XR chest 1V portable HISTORY: 72 years-old Male hypoxia COMPARISON: Right shoulder radiographs of same day, chest radiograph 12/20/2022 TECHNIQUE: AP view of the chest FINDINGS: Right shoulder arthroplasty with overlying skin anjelica. Cardiac silhouette is enlarged. Mild right h emidiaphragmatic elevation. No pneumothorax or large pleural effusion. Mild subsegmental right basila r densities. Degenerative changes of the shoulders and spine. IMPRESSION: 1. Cardiomegaly without overt pulmonary edema. 2. There is new right hemidiaphragmatic elevation with mild right basilar atelectasis. 3. Right shoulder arthroplasty. ACT 112: Negative or not required by law. The above report was generated using voice recognition software. It may contain grammatical, syntax o r spelling errors. Electronically signed by: Dusty Brewer M.D. 01/03/2023 10:06 AM
--- NOTE | 2023-01-03 12:01 | Pharmacy Report ---
Pharmacy Glycemic Short Note 2 - Date of Service January 03, 2023 - Glycemic Short BSG Results (Last 24 hours): 01/02/23 01/02/23 01/02/23 12:18 18:40 20:27 Glucose POC Glucose 102 H 97 109 H 01/03/23 01/03/23 01/03/23 07:11 08:17 11:53 Glucose 101 H POC Glucose 85 129 H OUTPATIENT ANTIDIABETIC REGIMEN: * Trulicity 0.75mg SQ weekly * Jardiance 10mg PO qHS * Metformin 500mg PO BID * HbA1c: 6.2% (12/26/22) ASSESSMENT: * Mr Servin is a 72yo diabetic M, who is POD #1 s/p R reverse shoulder w/ Dr Owen yesterday. * Outpt DM meds held on admission and pt started on SQ Novolog for correction al/prandial coverage. * BSGs have been stable thus far post-op. Pt has not required any basal insulin. * No further changes warranted at this time. PLAN FOR INPATIENT GLYCEMIC CONTROL: * Hold outpatient oral diabetes medications * Basal insulin * none at this time * Bolus insulin * NovoLog per scale ACHS or Q6hrs while NPO * Goal Range: Low 110 mg/dL - High 140 mg/dL * Correction Factor: 30 mg/dL/unit * Nutritional / Prandial insulin per carb ratio of 1 unit per 10 grams CHO consumed
--- NOTE | 2023-01-03 16:12 | Electrocardiogram Report ---
Test Reason : Blood Pressure : / mmHG Vent. Rate : 073 BPM Atrial Rate : 073 BPM P-R Int : 172 ms QRS Dur : 088 ms QT Int : 370 ms P-R-T Axes : 047 067 065 degrees QTc Int : 407 ms Normal sinus rhythm Normal ECG When compared with ECG of 20-DEC-2022 11:48, No significant change was found Confirmed by Carlos Arnold ([id number]) on 01/03/2023 4:12:44 PM Referred By: Erasto Owen Confirmed By:Carlos Arnold
[2023-01-03] MEDS: oxyCODONE HCL IR 5 MG TAB (IMMEDIATE RELEASE) PO PRN ×2 (19:29→23:42)
[2023-01-03] MEDS: ATORVASTATIN 40 MG TAB PO SCH (21:36)
[2023-01-03] MEDS: PANTOprazole 40 MG TAB PO SCH (21:37)
[2023-01-03] MEDS: CETIRIZINE HCL 10 MG TABLET PO SCH (21:37)
[2023-01-03] MEDS: CYANOCOBALAMIN (B-12) 500 MCG TABLET PO SCH (21:38)
[2023-01-03] MEDS: ATENOLOL 50 MG TABLET PO SCH (21:38)
[2023-01-03] MEDS: rOPINIRole HCL 0.25 MG TABLET PO SCH (21:38)
[2023-01-03] MEDS: lisinopril 40 MG TAB PO SCH (21:39)
[2023-01-03] MEDS: SENNA 8.6 MG TAB PO SCH (21:41)
[2023-01-04] MEDS: oxyCODONE HCL IR 5 MG TAB (IMMEDIATE RELEASE) PO PRN ×2 (03:22→07:21)
[2023-01-04] MEDS: ACETAMINOPHEN 500 MG TAB PO SCH (06:30)
--- NOTE | 2023-01-04 07:27 | XRay Report ---
XR chest 1V portable HISTORY: 72 years-old Male f/u elevated R hemidiaphragm acute shortness of breath with right hemidia phragmatic elevation COMPARISON: Chest radiograph 01/03/2023 TECHNIQUE: AP view of the chest FINDINGS: Cardiac mediastinal and hilar silhouettes are unchanged. There is decreased right hemidiaphragmatic e levation with improved aeration of the right lung base. No pneumothorax, large pleural effusion or ov ert pulmonary edema. Degenerative changes of the left shoulder. Right shoulder arthroplasty with over lying skin anjelica. IMPRESSION: Improved right basilar atelectasis with decreased right hemidiaphragmatic elevation. ACT 112: Negative or not required by law. The above report was generated using voice recognition software. It may contain grammatical, syntax o r spelling errors. Electronically signed by: Dusty Brewer M.D. 01/04/2023 7:25 AM
--- NOTE | 2023-01-04 07:48 | Orthopedic Progress Note ---
Date of Service January 04, 2023 Assessment & Plan (1) Rotator cuff arthropathy of right shoulder: Plan: Postop day 2 status post right reverse total shoulder arthroplasty. PT/OT protocols. Nonweightbearing right upper extremity. DVT prophylaxis-aspirin p.o. twice daily, SCDs, GUILHERME josee Pain management as written. Elevated BUN and creatinine. History of CKD. Patient's creatinine has been in the 1.9 area since November of this year. Hospitalist service consulted and will weigh in accordingly. Patient was having decreased oxygen saturations during therapy yesterday. Decision was made to keep an additional day. Patient had an overnight oximetry study completed. Repeat chest x-ray this morning. DC planning-minimal physical therapy initially. Patient planning for discharge to home when stable. Plan on discharge home today if cleared for discharge by medicine service. Possibly may need home oxygen for night. Admission and Anticipated Discharge Date Admission Date: January 02, 2023 Subjective Patient is postop day #2 right reverse total shoulder. He is feeling well this morning. No current complaints. Denies chest pain, shortness of breath, dizziness/lightheadedness, nausea/vomiting/diarrhea. Review of Systems Review of Systems: All systems reviewed & are unremarkable except as noted in Subjective Physical Exam Physical Exam: Right shoulder: Sling in place. Incision is clean, dry, intact. Dressing to Hemovac site is clean, dry, intact. Fingers are mobile with good extruding machine operator strength. Distally neurovascular status and sensation grossly intact. Constitutional: well developed and well nourished; no acute distress Results & Data ([facility]) Vital Signs (Past 12 Hours) Vital Signs Temp Pulse Pulse Resp BP Pulse Ox Pulse Ox 01/04/23 02:25 68 89 L 01/03/23 22:06 74 93 01/03/23 21:31 37 C 79 16 156/83 H 92 O2 Del Method O2 Del Method 01/04/23 02:25 Room Air 01/03/23 22:06 Room Air 01/03/23 21:31 Room Air
--- NOTE | 2023-01-04 08:29 | Hospitalist Progress Note ---
Date of Service January 04, 2023 Assessment & Plan (1) Rotator cuff arthropathy of right shoulder: Plan: POD# 1 s/p RIGHT reverse total shoulder w/ Dr Owen WBC wnl, afebrile Hgb 14.6--> 13.3, acute blood loss anemia from surgery and dilutional from IVF Pain control/bowel regimen/PT/OT/DVT prophylaxis per primary service BUN/Cr stable compared to pre-op, making good/clear urine at bedside currently can continues on usual medications/diuretics. Can have f/u nephrology outpatient 01/03 CXR obtained after working w/ PT for drop in saturation to 70s, had been on O2 last evening. Discussed likely SHANNAN in patient. Also never had echocardiogram, SOB w/ exertion at baseline and reports deconditioning and taking breaks but no chest pain. CXR w/ 1. Cardiomegaly without overt pulmonary edema. 2. There is new right hemidiaphragmatic elevation with mild right basilar atelectasis. 3. Right shoulder arthroplasty. 3 --> CXR improved, did not need supplemental O2 at night but pulse ox did show drops. Would rec patient discussed formal sleep study outpatient Patient states breathing improved, continued use of incentive spirometer Planning for 2step/supplemental O2 at discharge rather than staying overnight as patient adamant about not staying overnight again and was disappointed to have to stay last night --> 2step w/ RA at rest, 2L at end of testing required to maintain and bounced back --> Rx to CM for O2 w/ ambulation short term 60 days (but suspect will be less) and that patient needs f/u with PCP post-sx to retest. Labs from AM pending (2) Hypoxia: Plan: post-op, was on 2L room air POD#1 but dropped w/ PT CXR w/ elevated R hemidiaphragm, likely from nerve block from surgery Incentive spirometry ordered CXR this AM w/ improvement, continued incentive spirometer 90% on RA 2step prior to d/c planned rec f/u PCP for sleep study formally outpatient (3) HTN (hypertension): Plan: BP stable 138/82 Continue home atenolol 50mg, lasix 20mg, lisinopril 40mg (4) HLD (hyperlipidemia): Plan: Continue statin (5) DM II (diabetes mellitus, type II), controlled: Plan: BSGs stable, continue SSI while inpatient Jardiance and dulaglutide, metformin at home BSGs acceptable consider d/c metformin in f/u PCP given renal function (6) Chronic kidney disease (CKD): Plan: BUN/Cr at baseline since recent labs and ok'd by nephrology continued home meds, rec close f/u w/ nephrology at dc labs from AM pending but good UOP and stable day prior Plan recd 2step prior to dc as patient adamant about leaving. CM alerted and discussed w/ orthopedics. patient to continue incentive spirometer at d/c to f/u PCP in next week for monitoring consider changing metformin use at f/u given CKD but has been following w/ nephrology Hospitalist service will sign off at this time. Please call with any questions/concerns. Admission and Anticipated Discharge Date Admission Date: January 02, 2023 Supervising Physician Co-Signing Physician Notes The patient was not seen by me. Case discussed with ABILIO Juarez. The chart was reviewed. He is medically stable for discharge home today, January 05 Subjective patient evaluated this morning, visiting his sister in another room. breathing improved and he has been using the incentive spirometer. currently on room air, CXR improved. had RN walk and check O2, did drop to upper 70s and rebounded quickly and back to room air. Discussed continued monitoring overnight and monitoring CXR/breathing in AM but patient adamant about going home today. Will arrange for 2step, supplemental O2 if needed and discussed likely only needs at home for a couple days until symptoms resolved from nerve block/elevated diaphragm. Discussed with ortho and CM. Questions/concerns addressed. Will hopefully be able to arrange and get patient discharged today. Physical Exam Physical Exam: General: WD/WN obese male sitting up in chair, NAD HEENT: head normocephalic, atraumatic, mmm, trachea midline Resp: decreased in bases R>L, good effort, no w/c, on room air CV: regular rate/rhythm, no significant m/r/g, no pitting edema/calf tenderness GI: +BS, soft/NT : voiding spontaneously MSK/Neuro: no focal deficit, sling to shoulder intact, dressing c/d/i, tender to palpation, NVI, pulses palpable, drain w/ scant bloody drainage Psych: AOx3, pleasant and cooperative, talkative Results & Data Results & Data ([facility]) Vital Signs (Past 12 Hours) Vital Signs Temp Pulse Pulse Pulse Resp BP Pulse Ox 01/04/23 08:02 36.7 C 66 18 138/82 90 01/04/23 02:25 68 01/03/23 22:06 74 01/03/23 21:31 37 C 79 16 156/83 H 92 Pulse Ox O2 Del Method O2 Del Method 01/04/23 08:02 Room Air 01/04/23 02:25 89 L Room Air 01/03/23 22:06 93 Room Air 01/03/23 21:31 Room Air Laboratory Results 01/04/23 01/03/23 01/03/23 Range/Units 08:11 20:33 16:55 POC Glucose 131 H 118 H 114 H (70-99) mg/dl Magnesium (1.7-2.4) mg/dl 01/03/23 01/03/23 Range/Units 15:10 11:53 POC Glucose 129 H (70-99) mg/dl Magnesium 1.9 (1.7-2.4) mg/dl Diagnostic Findings Chest X-Ray 01/03/23 09:44 XR chest 1V portable HISTORY: 72 years-old Male hypoxia COMPARISON: Right shoulder radiographs of same day, chest radiograph 12/20/2022 TECHNIQUE: AP view of the chest FINDINGS: Right shoulder arthroplasty with overlying skin anjelica. Cardiac silhouette is enlarged. Mild right hemidiaphragmatic elevation. No pneumothorax or large pleural effusion. Mild subsegmental right basilar densities. Degenerative changes of the shoulders and spine. IMPRESSION: 1. Cardiomegaly without overt pulmonary edema. 2. There is new right hemidiaphragmatic elevation with mild right basilar atelectasis. 3. Right shoulder arthroplasty. ACT 112: Negative or not required by law. The above report was generated using voice recognition software. It may contain grammatical, syntax or spelling errors. Electronically signed by: Dusty Brewer M.D. 01/03/2023 10:06 AM Chest X-Ray 01/04/23 06:00 XR chest 1V portable HISTORY: 72 years-old Male f/u elevated R hemidiaphragm acute shortness of breath with right hemidiaphragmatic elevation COMPARISON: Chest radiograph 01/03/2023 TECHNIQUE: AP view of the chest FINDINGS: Cardiac mediastinal and hilar silhouettes are unchanged. There is decreased right hemidiaphragmatic elevation with improved aeration of the right lung base. No pneumothorax, large pleural effusion or overt pulmonary edema. Degenerative changes of the left shoulder. Right shoulder arthroplasty with overlying skin anjelica. IMPRESSION: Improved right basilar atelectasis with decreased right hemidiaphragmatic elevation. ACT 112: Negative or not required by law. The above report was generated using voice recognition software. It may contain grammatical, syntax or spelling errors. Electronically signed by: Dusty Brewer M.D. 01/04/2023 7:25 AM PG Care Time/CCT Total # of Minutes Spent Total Time Spent with Patient: Total time spent is greater than 50% in coordination of care (as documented) at patient's floor/unit and/or counseling patient: Coding Level of Care Code 39876 SUB INP/OBS CARE 2/35MIN Diagnoses Rotator cuff arthropathy of right shoulder M12.811 Hypoxia R09.02 HTN (hypertension) I10 HLD (hyperlipidemia) E78.5 DM II (diabetes mellitus, type II), controlled E11.9 Chronic kidney disease (CKD) N18.9
[2023-01-04] MEDS: ASPIRIN 81 MG ECTAB PO SCH (08:45)
[2023-01-04] MEDS: FLUTICASONE PROPIONATE NA SPR 16 GM BTL SCH (08:45)
[2023-01-04] MEDS: DOCUSATE SODIUM 100 MG CAP PO SCH (08:45)
[2023-01-04] MEDS: FUROSEMIDE 20 MG TAB PO SCH (08:47)
[2023-01-04] MEDS: MAGNESIUM OXIDE 400 MG TAB PO SCH (08:49)
[2023-01-04] MEDS: MULTIVITAMIN TAB PO SCH (08:49)
[2023-01-04] MEDS: PREGABALIN 50 MG CAP PO SCH (08:50)
[2023-01-04] MEDS: PREGABALIN 75 MG CAP PO SCH (08:51)
[2023-01-04] MEDS: PRIMIDONE 50 MG TAB PO SCH (08:52)
[2023-01-04] MEDS: INSULIN ASPART PER UNIT SC SCH (09:07)
[2023-01-04 10:00] LABS: Hematocrit (blood only) 44.1 % (42.0-52.0); Hemoglobin 14.5 g/dl (14.0-18.0); Mean Corpuscular Hemoglobin 29.9 pg (25.0-34.0); Mean Corpuscular Hgb Conc 32.9 g/dL (32.0-36.0); Mean Corpuscular Volume 90.9 fL (80.0-100.0); Mean Platelet Volume 10.2 fL (9.4-12.4); Platelet Count 179 K/uL (130-400); RDW Coefficient of Variation 14.4 % (11.5-14.5); RDW Standard Deviation 48.3 fL (36.4-46.3); Red Blood Count 4.85 M/uL (4.70-6.10); White Blood Count 13.74 K/ul (4.8-10.8)
[2023-01-04 10:28] LABS: Calcium 8.9 mg/dl (8.5-10.1); Potassium 4.4 mmol/L (3.5-5.1)
[2023-01-04 10:34] LABS: BUN Creatinine Ratio 16.6 (10-20); Creatinine Clr Calc Pharmacy 34.5 ml/min; Est GFR (African American) 31.6 ml/min; Est GFR (Non-African American) 27.3 ml/min
[2023-01-08] MEDS ORDERED: ERGOCALCIFEROL 50,000 UNITS 1250 MCG CAP PO SCH (16:30)
--- NOTE | 2023-01-14 09:04 | Discharge Summary ---
Date of Service January 14, 2023 Admission HPI Per Admitting Provider 72-year-old male with past medical history significant for hypertension, high cholesterol, diabetes CKD who presents with ongoing right shoulder pain. Pain is interfering with his daily activities. He has failed conservative measures. He would like to proceed with surgical intervention. Patient denies headaches, sweats, fevers, chills, double vision, blurred vision, cough, sore throat, dysphagia, chest pain, sob, wheezing, n/v/d/c, numbness, tingling, fatigue, urinary symptoms, mood disorders. ROS positive for right shoulder pain and stiffness. Admission Exam Per Admitting Provider Physical Exam Constitutional: well developed and well nourished; no acute distress Eyes: PERRL, conjunctivae normal, anicteric sclerae ENMT: external ear and nose normal, oropharynx normal Neck: trachea midline, no thyromegaly Respiratory: normal respiratory effort, lungs clear to auscultation Cardiovascular: RRR, no murmur, no edema Musculoskeletal: Right shoulder: Tenderness anterolateral acromion. Positive impingement signs. Pain with resisted strength testing. Painful range of motion. Abduction to 120 degrees, forward flexion to 160 degrees, external rotation at 90 degrees. Strength testin+/5 external rotation, 4+/5 internal rotation, 3+/5 abduction. Skin: no rashes, warm and dry Neurologic: patellar DTR's 2+ bilat, sensation intact Psychiatric: A+Ox3, euthymic affect Principal Diagnosis Right rotator cuff arthropathy Discharge Data Allergies Allergy/AdvReac Type Severity Reaction Status Date / Time cat dander Allergy Intermediate Itchy, Verified 01/11/23 12:40 watery eyes adhesive Allergy Mild Redness Verified 01/11/23 12:40 rash, skin tearing with bandaids Consultations 01/01/23 09:01 Consult Hospitalist Routine Procedures Performed Operation Date: 01/02/23 14:30 Actual Procedures p Right Reverse Total Shoulder Arthroplasty(Right),(Right) - Erasto Owen MD s debridement of old suture anchors and suture material. - Erasto Owen MD Ordered Studies 01/02/23 05:00 US - OR guided needle placemen Routine Hospital Course (1) Rotator cuff arthropathy of right shoulder: Patient was admitted on the above-noted date and had the above-noted surgery performed which she tolerated well. Physical Exam On his first postoperative day, he was sitting up in bed awake and alert. Stated he had some shortness of breath while ambulating in the hallways earlier. He stated that this was normal for ambulating longer distances and did not seem to be increased. His oxygen saturation was 99 on room air at that time. Pain was controlled. He had some slight residual numbness in the hand and fingers from his nerve block. Vital signs remaining stable and he was afebrile. Blood pressure was fluctuating but was 151/83 that morning. Dressings remain clean,, dry, and intact. Hemovac was present. This was all discontinued on postop day 2. [facility] physician group hospitalist service has been consulted for medical consult. Patient was seen by Jen Feng PA-C. Patient was provided with incentive spirometry and it was felt he should be watched overnight with a repeat chest x-ray in the morning. This was secondary to his oxygen saturation level dropping to the 70s while working with physical therapy. Supplemental O2 was needed. Patient had an overnight oximetry study completed and a repeat chest x-ray that morning. Per hospitalist service, his checks x-ray improved and he did not need supplemental O2 at night but the pulse ox did show some drops. Two-step was ordered with plans for supplemental O2 at the time of discharge. Two-step showed RA at rest, with 2 L at the end of testing required to maintain and bounce back. Plans for supplemental O2 at home short-term for 60 days with follow-up with his primary care physician. He was otherwise remaining stable by 01/04/2023 medically as well as orthopedically and it was felt he could be discharged to home. Total Time Total Time Spent Total Time Spent (In Minutes): 10 Discharge Plan Discharge Items Patient Disposition: Home - Self-Care Reason For Visit: Right Shoulder Osteoarthritis Discharge Diagnosis: Right Shoulder Osteoarthritis Activity: Per Instructions section Weightbearing: Right non-weightbearing Non-emergency contact: Surgeon Call non-emergency contact if: you have any medication questions, your pain is not controlled, your temperature is above 101.5, your wound has increased redness and your wound has increased drainage Follow-up/Referrals: Twyla Weber-DO Vonda [Primary Care Provider] - Erasto Owen MD [Surgeon] - (Follow up with Dr Owen or his PA in 2 weeks from the day of your surgery for your first post operative visit) Diet: Carb Consistent or DM2 Addtl Attending Provider Instructions: CONTINUE TO FOLLOW UP REGULARLY WITH YOUR FISH ICER CONCERNING YOUR CHRONIC KIDNEY DISEASE. ACTIVITY RECOMMENDATIONS: SELF CARE INSTRUCTIONS AFTER TOTAL SHOULDER ARTHROPLASTY REVERSE A. You may do daily exercises as taught in physical therapy while in hospital. No lifting with the operative arm. B. You are to wear your sling/immobilizer at all times EXCEPT when performing your daily exercises and for hygiene purposes. C. You may perform dry, daily dressing changes. Please keep your incision covered. You may shower 48 hours after surgery. Do not apply soap or any ointment/lotions directly over incision. Do not soak incision in bath tub/swimming pool. D. You may use ice as needed to operative shoulder. SPECIAL CARE INSTRUCTIONS: VERY IMPORTANT TO READ AND REVIEW A. There are a few signs you need to watch for after you are home. Call [facility] at [phone] if you experience any of the followin. Increased severe shoulder pain. Some pain is expected especially when you exercise. 2. Increased swelling in you shoulder or arm; pain or swelling in either upper extremity. 3. Any fluid drainage from the incision. 4. Shortness of breath or chest pain. B. Please call [facility] at [phone] if you have any questions or concerns about your operation or recovery. C. Call your physician if: 1. Temperature is greater than 101 degrees (F). 2. Pain is not relieved by prescribed pain medications. 3. Increase drainage or redness from incision. 4. Unanswered questions or concerns. FOLLOW UP VISIT: Please call [facility] at [phone] to schedule a follow up appointment with Dr. Owen or his PA in 12-14 days from your surgery date. Stand-Alone Forms: My [employer], Smoking Cessation Medications and DC Order Prescriptions: New aspirin 81 mg Tablet,Delayed Release (Dr/Ec) 81 mg PO BID 30 Days Qty: 60 0RF acetaminophen [Tylenol Extra Strength] 500 mg Tablet 1,000 mg PO Q8 14 Days Qty: 84 0RF polyethylene glycol 3350 [Miralax] 17 gram powder in packet 17 g PO DAILY PRN (Reason: constipation) Qty: 5 0RF cefadroxil 500 mg capsule 500 mg PO BID Qty: 14 0RF oxycodone 5 mg tablet 5 mg PO Q4H MDD 6 PRN (Reason: pain) Qty: 30 0RF Continued meclizine 25 mg tablet 25 mg PO TID PRN (Reason: dizziness) Qty: 90 0RF febuxostat [Uloric] 40 mg tablet 40 mg PO DAILY 90 Days Qty: 90 0RF Rx Instructions: renal dosing not supported for allopurinol. approved from 07/18/22 - 10/16/23 levocetirizine 5 mg tablet 5 mg PO HS Qty: 90 1RF cholecalciferol (vitamin D3) 1,250 mcg (50,000 unit) capsule 50,000 unit PO .weekly Qty: 12 1RF Rx Instructions: Take with the largest meal of the day. pantoprazole 40 mg tablet,delayed release (DR/EC) 40 mg PO HS Qty: 90 1RF docusate sodium 100 mg capsule 100 mg PO DAILY PRN (Reason: Constipation) clobetasol 0.05 % ointment 1 applic topical BID PRN (Reason: itching) Qty: 6 0RF Rx Instructions: 60 grams per tube and 6 tubes please fluticasone propionate [Allergy Relief (fluticasone)] 50 mcg/actuation spray,suspension 2 spray intranasal DAILY Qty: 48 2RF Rx Instructions: administer into each nostril colchicine 0.6 mg tablet 0.6 mg PO BID PRN (Reason: gout flare) Qty: 30 0RF Rx Instructions: Take 1.2mg at first sign of flare, then 0.6mg 1 hour after initial dose, then 0.6mg BID until flare resolves. atorvastatin 40 mg tablet 40 mg PO HS Qty: 90 1RF Trulicity 0.75 mg/0.5 mL pen injector 0.75 mg subcut .weekly Qty: 6 1RF atenolol 50 mg tablet 50 mg PO .qHS Qty: 90 3RF furosemide 20 mg tablet 20 mg PO QAM Qty: 90 3RF metformin 500 mg tablet extended release 24 hr 500 mg PO BID Qty: 360 1RF pregabalin [Lyrica] 50 mg capsule 50 mg PO BID Rx Instructions: per Dr. Pizarro primidone 50 mg tablet 50 mg PO BID Rx Instructions: per Dr. Pizarro magnesium oxide 400 mg magnesium capsule 400 mg PO BID pregabalin [Lyrica] 225 mg capsule 225 mg PO BID Rx Instructions: per Dr. Pizarro lisinopril 40 mg tablet 40 mg PO HS Jardiance 10 mg tablet 10 mg PO HS cyanocobalamin (vitamin B-12) 1,000 mcg capsule 1,000 mcg PO HS ropinirole 0.25 mg Tablet 0.25 mg PO HS Patient Comments: pt takes 3 tabs hs Discontinued aspirin [Adult Low Dose Aspirin] 81 mg tablet,delayed release (DR/EC) 81 mg PO HS acetaminophen [Tylenol Extra Strength] 500 mg tablet 1,000 mg PO Q8 PRN (Reason: Pain) No Action clobetasol 0.05 % solution 1 applic topical DAILY Qty: 50 0RF Rx Instructions: Apply daily for 2 weeks. Discharge Orders: Discharge Order (Routine); Ordered 01/04/23 Ordered By: Edmundo Fagan/Other Patient Handouts: Shoulder Replace Home Recovery Admission Data Admit Date/Time: 01/02/23 18:46 Attending Provider: Erasto Owen Admit Provider: Erasto Owen Primary Care Provider: Twyla Weber Other Providers: Maico Armenta Other Interventions: Discharge Summary Assessment (RN) Last Done: 01/04/23 11:57
== END 2023-01-04 12:24 | disposition home or self-care (01) | DRG 483 ==
LOC: ASU 11:51 → 3E 18:46 → INTOOBSV 18:46
DX: D62 Acute posthemorrhagic anemia; N40.1 Benign prostatic hyperplasia with lower urinary tract symptoms; J98.6 Disorders of diaphragm; Z79.85 Long-term (current) use of injectable non-insulin antidiabetic drugs; Z20.822 Contact with and (suspected) exposure to COVID-19; Z79.82 Long term (current) use of aspirin; R09.02 Hypoxemia; Z79.51 Long term (current) use of inhaled steroids; I12.9 Hypertensive chronic kidney disease with stage 1 through stage 4 chronic kidney disease, or unspecified chronic kidney disease; Z79.84 Long term (current) use of oral hypoglycemic drugs; K21.9 Gastro-esophageal reflux disease without esophagitis; T41.3X5A Adverse effect of local anesthetics, initial encounter; M19.011 Primary osteoarthritis, right shoulder; E78.5 Hyperlipidemia, unspecified; Z91.048 Other nonmedicinal substance allergy status; R39.9 Unspecified symptoms and signs involving the genitourinary system; Z96.7 Presence of other bone and tendon implants; Z79.899 Other long term (current) drug therapy; E11.42 Type 2 diabetes mellitus with diabetic polyneuropathy; N18.32 Chronic kidney disease, stage 3b; M12.511 Traumatic arthropathy, right shoulder; Z83.3 Family history of diabetes mellitus; Z82.49 Family history of ischemic heart disease and other diseases of the circulatory system; Z87.891 Personal history of nicotine dependence; E11.22 Type 2 diabetes mellitus with diabetic chronic kidney disease